=== PATIENT | female | born 1945 | race Caucasian/White ===

== ENCOUNTER 2023-04-13 20:35 | Observation (INO) ==
[2023-04-13] MEDS ORDERED: SODIUM CHLORIDE 0.9% 1,000 ML IV ONE (21:02)
--- NOTE | 2023-04-13 21:27 | Emergency Department Note ---
History of Present Illness General Chief complaint: Head Pain Stated complaint: SHAKY, HEAD PAIN Time Seen by Provider: 04/13/23 20:47 Source: patient, family, RN notes reviewed and old records reviewed (Head CT from 07/14/2022 was reviewed) Mode of arrival: ambulatory Limitations: no limitations History of Present Illness Maximum Pain Intensity: 5 This patient is a 77-year-old female who comes in after not feeling well for about 3 weeks. She is having episodes where she feels hot and has chills she feels like she has some head headaches when these occur she also gets short of breath and shaky she feels generally washed out she gets nauseated. She was seen in [place] and was in overnight and was diagnosed with hypokalemia at the time. She has had no fever. she has had no fall or trauma. No chest pain . she is not short of breath except for when she gets these episodes. she is been shaky she has a history of anxiety but feels this is different. She had no blood or melena stool no abdominal pain. No focal numbness or weakness. she does have baseline tremor. She may have had some mild dysuria Home Medications Medication Instructions Recorded Confirmed Type epinephrine 0.3 mg/0.3 mL 0.3 mg IM Q4H PRN Allergic Reaction 07/04/22 04/13/23 History injection, auto-injector (EpiPen) fluoxetine 10 mg capsule 10 mg PO DAILY 07/04/22 04/13/23 History hydroxyzine HCl 10 mg tablet 5 - 10 mg PO TID PRN anxiety or 04/13/23 04/13/23 History insomnia Allergies Allergy/AdvReac Type Severity Reaction Status Date / Time bee venom protein (honey bee) Allergy Severe Anaphylaxis Verified 04/13/23 20:54 shellfish derived Allergy Severe Anaphylaxis Verified 04/13/23 20:54 Sulfa (Sulfonamide Allergy Unknown Unknown Verified 04/13/23 20:54 Antibiotics) Past Med/Surg History Social History Smoking Status: Never smoker Preferred Language: Khmer Feels Safe at Home: Yes Immunizations: Past med historyanxiety. She also broke her left arm 8 months ago and scheduled of surgery next week. No diabetes or cardiac disease history. Denies history of stroke mini stroke or seizure. Social historyshe is followed by Dr. Mariscal. She does have a history of smoking but quit. Does not drink alcohol Review of Systems A total of 10 systems reviewed and were otherwise negative Physical Exam Vital Signs Vital Signs - 24 hr 04/13/23 20:38 04/13/23 21:13 04/13/23 21:15 Temperature 36.9 C Temperature Source Temporal Artery Scan Pulse Rate 74 Pulse Rate [Apical] 69 Pulse Rate from SpO2 Sensor Pulse Rhythm Regular Pulse Rhythm [Apical] Regular Pulse Strength Normal Respiratory Rate 19 21 Respiratory Effort / Characteristics Non-Labored Spontaneous Non-Labored Respiratory Depth Normal Normal Respiratory Pattern Regular Blood Pressure 200/74 H Blood Pressure [Right Arm] 185/80 H Blood Pressure Mean 116 Blood Pressure Mean [Right Arm] 115 Blood Pressure Position Sitting Pulse Oximetry 97 97 97 Oxygen Delivery Method Room Air Room Air Sepsis Recent Fever Within 48 Hours No Sepsis New/Unexplained Change in Mental Status N/A Sepsis Action Taken by Nursing No Action Required 04/13/23 21:19 04/13/23 22:00 04/13/23 22:29 Temperature Temperature Source Pulse Rate 73 62 61 Pulse Rate [Apical] Pulse Rate from SpO2 Sensor 62 61 Pulse Rhythm Pulse Rhythm [Apical] Pulse Strength Respiratory Rate 15 18 Respiratory Effort / Characteristics Respiratory Depth Respiratory Pattern Blood Pressure 174/74 H 152/66 H Blood Pressure [Right Arm] Blood Pressure Mean 107 94 Blood Pressure Mean [Right Arm] Blood Pressure Position Pulse Oximetry 98 98 Oxygen Delivery Method Sepsis Recent Fever Within 48 Hours Sepsis New/Unexplained Change in Mental Status Sepsis Action Taken by Nursing 04/13/23 22:30 04/13/23 23:38 04/13/23 23:39 Temperature Temperature Source Pulse Rate 62 88 74 Pulse Rate [Apical] Pulse Rate from SpO2 Sensor 61 Pulse Rhythm Pulse Rhythm [Apical] Pulse Strength Respiratory Rate 25 H Respiratory Effort / Characteristics Respiratory Depth Respiratory Pattern Blood Pressure 155/73 H Blood Pressure [Right Arm] Blood Pressure Mean 100 Blood Pressure Mean [Right Arm] Blood Pressure Position Pulse Oximetry 97 Oxygen Delivery Method Sepsis Recent Fever Within 48 Hours Sepsis New/Unexplained Change in Mental Status Sepsis Action Taken by Nursing 04/13/23 23:01 04/13/23 23:30 04/14/23 00:01 Temperature Temperature Source Pulse Rate 63 63 74 Pulse Rate [Apical] Pulse Rate from SpO2 Sensor 63 63 74 Pulse Rhythm Pulse Rhythm [Apical] Pulse Strength Respiratory Rate 18 16 23 Respiratory Effort / Characteristics Respiratory Depth Respiratory Pattern Blood Pressure 168/57 H 178/78 H 186/65 H Blood Pressure [Right Arm] Blood Pressure Mean 94 111 105 Blood Pressure Mean [Right Arm] Blood Pressure Position Pulse Oximetry 95 98 97 Oxygen Delivery Method Sepsis Recent Fever Within 48 Hours Sepsis New/Unexplained Change in Mental Status Sepsis Action Taken by Nursing General: Well developed well nourished anxious older female who otherwise in no acute distress, breathing comfortably on room air. Normal speech HEENT: Normal cephalic atraumatic. Pupils are equal round and reactive to light. Extraocular movements are intact. Sclera anicteric. oropharynx is pink with moist mucous membranes. No swelling of the mouth lips or tongue. Neck: Supple with a midline trachea. No meningeal signs or stiffness, no JVD or bruits. No Stridor. Chest: Clear to auscultation bilaterally. No wheezes or rhonchi. No increased work of breathing. Heart: Regular rate and rhythm without murmurs or gallops. Abdomen: Soft nontender, nondistended without rebound guarding or rigidity. Extremities: No cyanosis clubbing or edema. No calf tenderness or assymetry Spine/Back. Non tender to palpation. No CVA tenderness Skin: Good turgor without rashes. Neurologic exam: Cranial nerves two through 12 are intact. Motor and sensation are intact and symmetrical throughout. There is an intention tremor Course Administered Medications Discontinued Medications Sodium Chloride (Nss) 1,000 mls @ 999 mls/hr IV .[id number] ONE Stop: 04/13/23 22:02 Last Infusion: 04/13/23 22:18 Dose: 0 mls/hr Documented By: Admin: 04/13/23 21:11 Dose: 999 mls/hr Documented By: KIRSTEN Medical Decision Making Differential Diagnosis Sepsis, electrolyte or metabolic abnormality, arrhythmia, neurologic disease, cardiac disease, anxiety, anemia, UTI Medical Records Attestation: I reviewed the patient's medical records. Home Medications Current Medication List: was personally reviewed by me Laboratory Data Attestation: I reviewed the patient's lab results. 04/13/23 21:39 04/13/23 21:39 Lab Results 04/13/23 04/13/23 04/13/23 Range/Units 21:00 21:14 21:39 WBC 11.34 H (4.8-10.8) K/ul RBC 4.50 (4.20-5.40) M/uL Hgb 13.6 (12.0-16.0) g/dl POC Hgb (12.0-16.0) g/dl Hct 39.4 (37.0-47.0) % POC Hct (37-47) % MCV 87.6 (80.0-100.0) fL MCH 30.2 (25.0-34.0) pg MCHC 34.5 (32.0-36.0) g/dL RDW Std Deviation 41.7 (36.4-46.3) fL RDW Coeff of Diane 13.1 (11.5-14.5) % Plt Count 310 (130-400) K/uL MPV 9.5 (9.4-12.4) fL Immature Gran % (Auto) 0.4 % Neut % (Auto) 68.0 % Lymph % (Auto) 22.8 % Mcdowell % (Auto) 7.3 % Eos % (Auto) 1.1 % Baso % (Auto) 0.4 % Neut # (Auto) 7.71 H (1.40-6.50) K/uL Lymph # (Auto) 2.59 (1.20-3.40) K/uL Mcdowell # (Auto) 0.83 H (0.11-0.59) K/uL Eos # (Auto) 0.12 (0.00-0.50) K/uL Baso # (Auto) 0.05 (0.00-0.20) K/uL Immature Gran # (Auto) 0.04 (0.01-0.20) K/uL PT (9.0-12.0) Seconds INR (0.9-1.1) APTT (21.0-31.0) Seconds PTT Ratio POC Sodium (135-144) mmol/L Sodium (136-145) mmol/L POC Potassium (3.3-5.0) mmol/L Potassium (3.5-5.1) mmol/L POC Chloride (101-112) mmol/L Chloride (98-107) mmol/L Carbon Dioxide (21-32) mmol/L POC Total CO2 (24-31) mmol/L Anion Gap (3-11) POC Anion Gap (16-25) mmol/L POC BUN (7-18) mg/dl BUN (6-23) mg/dl Creatinine (0.6-1.2) mg/dl POC Creatinine (0.6-1.3) mg/dl Est Cr Clr Drug Dosing ml/min Est GFR ( Amer) ml/min Est GFR (Non-Af Amer) ml/min BUN/Creatinine Ratio (10-20) Glucose (70-99(Fasting)) mg/dl POC Glucose (70-99) mg/dl POC Glucose (other) (70-99) mg/dl Lactate (0.4-2.0) mmol/L Calcium (8.6-10.3) mg/dl POC Ioniz Calcium Ambar (1.12-1.32) mmol/l Magnesium (1.7-2.4) mg/dl Total Bilirubin (0.2-1.0) mg/dl Direct Bilirubin (0-0.2) mg/dl AST (13-39) U/L ALT (7-52) U/L Alkaline Phosphatase (34-104) U/L Troponin I High Sens (0-14) pg/ml Total Protein (6.0-8.3) gm/dl Albumin (3.4-5.0) gm/dl Procalcitonin (0-0.5) ng/ml Urine Color Yellow Urine Appearance Clear (Clear) Urine pH 8.0 H (4.5-7.5) Ur Specific Hunter 1.006 (1.000-1.030) Urine Protein Negative (Negative) Urine Glucose (UA) Negative (Negative) Urine Ketones Negative (Negative) Urine Blood Negative (Negative) Urine Nitrite Negative (Negative) Urine Bilirubin Negative (Negative) Urine Urobilinogen Negative (Negative) Ur Leukocyte Esterase Negative (Negative) Anaplasma Smear Babesia Smear Lyme Disease IgG Ab (Negative) Lyme Disease IgM Ab (Negative) SARS-CoV-2 (PCR) NEGATIVE (Negative) Influenza Type A (PCR) Negative (Neg) Influenza Type B (PCR) Negative (Neg) RSV (RT-PCR) Negative (Neg) 04/13/23 04/13/23 04/13/23 Range/Units 21:39 21:39 21:39 WBC (4.8-10.8) K/ul RBC (4.20-5.40) M/uL Hgb (12.0-16.0) g/dl POC Hgb (12.0-16.0) g/dl Hct (37.0-47.0) % POC Hct (37-47) % MCV (80.0-100.0) fL MCH (25.0-34.0) pg MCHC (32.0-36.0) g/dL RDW Std Deviation (36.4-46.3) fL RDW Coeff of Diane (11.5-14.5) % Plt Count (130-400) K/uL MPV (9.4-12.4) fL Immature Gran % (Auto) % Neut % (Auto) % Lymph % (Auto) % Mcdowell % (Auto) % Eos % (Auto) % Baso % (Auto) % Neut # (Auto) (1.40-6.50) K/uL Lymph # (Auto) (1.20-3.40) K/uL Mcdowell # (Auto) (0.11-0.59) K/uL Eos # (Auto) (0.00-0.50) K/uL Baso # (Auto) (0.00-0.20) K/uL Immature Gran # (Auto) (0.01-0.20) K/uL PT 11.0 (9.0-12.0) Seconds INR 1.0 (0.9-1.1) APTT 25.7 (21.0-31.0) Seconds PTT Ratio 0.9 POC Sodium (135-144) mmol/L Sodium 139 (136-145) mmol/L POC Potassium (3.3-5.0) mmol/L Potassium 3.6 (3.5-5.1) mmol/L POC Chloride (101-112) mmol/L Chloride 107 (98-107) mmol/L Carbon Dioxide 23 (21-32) mmol/L POC Total CO2 (24-31) mmol/L Anion Gap 9 (3-11) POC Anion Gap (16-25) mmol/L POC BUN (7-18) mg/dl BUN 9 (6-23) mg/dl Creatinine 0.68 (0.6-1.2) mg/dl POC Creatinine (0.6-1.3) mg/dl Est Cr Clr Drug Dosing 61.8 ml/min Est GFR ( Amer) 96.4 ml/min Est GFR (Non-Af Amer) 83.2 ml/min BUN/Creatinine Ratio 13.2 (10-20) Glucose 98 (70-99(Fasting)) mg/dl POC Glucose (70-99) mg/dl POC Glucose (other) (70-99) mg/dl Lactate 1.8 (0.4-2.0) mmol/L Calcium 8.9 (8.6-10.3) mg/dl POC Ioniz Calcium Ambar (1.12-1.32) mmol/l Magnesium 1.9 (1.7-2.4) mg/dl Total Bilirubin 0.5 (0.2-1.0) mg/dl Direct Bilirubin 0.1 (0-0.2) mg/dl AST 16 (13-39) U/L ALT 11 (7-52) U/L Alkaline Phosphatase 88 (34-104) U/L Troponin I High Sens 7.2 (0-14) pg/ml Total Protein 7.5 (6.0-8.3) gm/dl Albumin 4.0 (3.4-5.0) gm/dl Procalcitonin (0-0.5) ng/ml Urine Color Urine Appearance (Clear) Urine pH (4.5-7.5) Ur Specific Hunter (1.000-1.030) Urine Protein (Negative) Urine Glucose (UA) (Negative) Urine Ketones (Negative) Urine Blood (Negative) Urine Nitrite (Negative) Urine Bilirubin (Negative) Urine Urobilinogen (Negative) Ur Leukocyte Esterase (Negative) Anaplasma Smear Babesia Smear Lyme Disease IgG Ab (Negative) Lyme Disease IgM Ab (Negative) SARS-CoV-2 (PCR) (Negative) Influenza Type A (PCR) (Neg) Influenza Type B (PCR) (Neg) RSV (RT-PCR) (Neg) 04/13/23 04/13/23 04/13/23 Range/Units 21:39 21:39 22:20 WBC (4.8-10.8) K/ul RBC (4.20-5.40) M/uL Hgb (12.0-16.0) g/dl POC Hgb (12.0-16.0) g/dl Hct (37.0-47.0) % POC Hct (37-47) % MCV (80.0-100.0) fL MCH (25.0-34.0) pg MCHC (32.0-36.0) g/dL RDW Std Deviation (36.4-46.3) fL RDW Coeff of Diane (11.5-14.5) % Plt Count (130-400) K/uL MPV (9.4-12.4) fL Immature Gran % (Auto) % Neut % (Auto) % Lymph % (Auto) % Mcdowell % (Auto) % Eos % (Auto) % Baso % (Auto) % Neut # (Auto) (1.40-6.50) K/uL Lymph # (Auto) (1.20-3.40) K/uL Mcdowell # (Auto) (0.11-0.59) K/uL Eos # (Auto) (0.00-0.50) K/uL Baso # (Auto) (0.00-0.20) K/uL Immature Gran # (Auto) (0.01-0.20) K/uL PT (9.0-12.0) Seconds INR (0.9-1.1) APTT (21.0-31.0) Seconds PTT Ratio POC Sodium (135-144) mmol/L Sodium (136-145) mmol/L POC Potassium (3.3-5.0) mmol/L Potassium (3.5-5.1) mmol/L POC Chloride (101-112) mmol/L Chloride (98-107) mmol/L Carbon Dioxide (21-32) mmol/L POC Total CO2 (24-31) mmol/L Anion Gap (3-11) POC Anion Gap (16-25) mmol/L POC BUN (7-18) mg/dl BUN (6-23) mg/dl Creatinine (0.6-1.2) mg/dl POC Creatinine (0.6-1.3) mg/dl Est Cr Clr Drug Dosing ml/min Est GFR ( Amer) ml/min Est GFR (Non-Af Amer) ml/min BUN/Creatinine Ratio (10-20) Glucose (70-99(Fasting)) mg/dl POC Glucose 122 H (70-99) mg/dl POC Glucose (other) (70-99) mg/dl Lactate (0.4-2.0) mmol/L Calcium (8.6-10.3) mg/dl POC Ioniz Calcium Ambar (1.12-1.32) mmol/l Magnesium (1.7-2.4) mg/dl Total Bilirubin (0.2-1.0) mg/dl Direct Bilirubin (0-0.2) mg/dl AST (13-39) U/L ALT (7-52) U/L Alkaline Phosphatase (34-104) U/L Troponin I High Sens (0-14) pg/ml Total Protein (6.0-8.3) gm/dl Albumin (3.4-5.0) gm/dl Procalcitonin < 0.05 (0-0.5) ng/ml Urine Color Urine Appearance (Clear) Urine pH (4.5-7.5) Ur Specific Hunter (1.000-1.030) Urine Protein (Negative) Urine Glucose (UA) (Negative) Urine Ketones (Negative) Urine Blood (Negative) Urine Nitrite (Negative) Urine Bilirubin (Negative) Urine Urobilinogen (Negative) Ur Leukocyte Esterase (Negative) Anaplasma Smear See Comment Babesia Smear See Comment Lyme Disease IgG Ab Negative (Negative) Lyme Disease IgM Ab Negative (Negative) SARS-CoV-2 (PCR) (Negative) Influenza Type A (PCR) (Neg) Influenza Type B (PCR) (Neg) RSV (RT-PCR) (Neg) 04/13/23 Range/Units 22:23 WBC (4.8-10.8) K/ul RBC (4.20-5.40) M/uL Hgb (12.0-16.0) g/dl POC Hgb 13.3 (12.0-16.0) g/dl Hct (37.0-47.0) % POC Hct 39 (37-47) % MCV (80.0-100.0) fL MCH (25.0-34.0) pg MCHC (32.0-36.0) g/dL RDW Std Deviation (36.4-46.3) fL RDW Coeff of Diane (11.5-14.5) % Plt Count (130-400) K/uL MPV (9.4-12.4) fL Immature Gran % (Auto) % Neut % (Auto) % Lymph % (Auto) % Mcdowell % (Auto) % Eos % (Auto) % Baso % (Auto) % Neut # (Auto) (1.40-6.50) K/uL Lymph # (Auto) (1.20-3.40) K/uL Mcdowell # (Auto) (0.11-0.59) K/uL Eos # (Auto) (0.00-0.50) K/uL Baso # (Auto) (0.00-0.20) K/uL Immature Gran # (Auto) (0.01-0.20) K/uL PT (9.0-12.0) Seconds INR (0.9-1.1) APTT (21.0-31.0) Seconds PTT Ratio POC Sodium 136 (135-144) mmol/L Sodium (136-145) mmol/L POC Potassium 4.0 (3.3-5.0) mmol/L Potassium (3.5-5.1) mmol/L POC Chloride 96 L (101-112) mmol/L Chloride (98-107) mmol/L Carbon Dioxide (21-32) mmol/L POC Total CO2 31 (24-31) mmol/L Anion Gap (3-11) POC Anion Gap 14.0 L (16-25) mmol/L POC BUN 24 H (7-18) mg/dl BUN (6-23) mg/dl Creatinine (0.6-1.2) mg/dl POC Creatinine 1.3 (0.6-1.3) mg/dl Est Cr Clr Drug Dosing ml/min Est GFR ( Amer) ml/min Est GFR (Non-Af Amer) ml/min BUN/Creatinine Ratio (10-20) Glucose (70-99(Fasting)) mg/dl POC Glucose (70-99) mg/dl POC Glucose (other) 125 H (70-99) mg/dl Lactate (0.4-2.0) mmol/L Calcium (8.6-10.3) mg/dl POC Ioniz Calcium Ambar 1.15 (1.12-1.32) mmol/l Magnesium (1.7-2.4) mg/dl Total Bilirubin (0.2-1.0) mg/dl Direct Bilirubin (0-0.2) mg/dl AST (13-39) U/L ALT (7-52) U/L Alkaline Phosphatase (34-104) U/L Troponin I High Sens (0-14) pg/ml Total Protein (6.0-8.3) gm/dl Albumin (3.4-5.0) gm/dl Procalcitonin (0-0.5) ng/ml Urine Color Urine Appearance (Clear) Urine pH (4.5-7.5) Ur Specific Hunter (1.000-1.030) Urine Protein (Negative) Urine Glucose (UA) (Negative) Urine Ketones (Negative) Urine Blood (Negative) Urine Nitrite (Negative) Urine Bilirubin (Negative) Urine Urobilinogen (Negative) Ur Leukocyte Esterase (Negative) Anaplasma Smear Babesia Smear Lyme Disease IgG Ab (Negative) Lyme Disease IgM Ab (Negative) SARS-CoV-2 (PCR) (Negative) Influenza Type A (PCR) (Neg) Influenza Type B (PCR) (Neg) RSV (RT-PCR) (Neg) Imaging Data Attestation: I personally reviewed and interpreted this imaging study as follows: My Impression: Chest x-rayno acute infiltrate, failure, pneumothorax seen. 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 No midline shift. Radiologist's Impression: Head CT 04/13/23 21:01 Exam(s): CT HEAD Without Contrast EXAM: CT Head Without Intravenous Contrast CLINICAL HISTORY: Reason for exam: weakness. TECHNIQUE: Axial computed tomography images of the head/brain without intravenous contrast. CTDI is 38.1 mGy and DLP is 546.36 mGy-cm. Automated exposure control was utilized for the study. A dose lowering technique was utilized adhering to the principles of ALARA. COMPARISON: No relevant prior studies available. FINDINGS: No acute intracranial hemorrhage. No midline shift or mass effect. The territorial miles-white matter differentiation is maintained throughout. Age-related cerebral volume loss. Periventricular and subcortical white matter hypoattenuation, consistent with chronic microangiopathy. The visualized orbits appear grossly unremarkable. The calvarium is intact. The visualized paranasal sinuses and mastoid air cells are grossly clear. IMPRESSION: No acute intracranial hemorrhage, midline shift, or mass effect. Electronically signed by: Yunior Hoskins MD 04/13/23 23:18 PM ECG Data Attestation: I personally reviewed and interpreted this ECG as follows: Indication: + weakness Rate (beats per minute): 73 Rhythm: + normal sinus ECG Intervals/blocks: + Normal QRS, + Normal QT and + Normal [place] ECG [place]: + Normal ECG ST segments: + Nonspecific ST abnormalities ECG Findings: + PVCs (She appears to be in bigeminy) Comparison ECG Date: no prior available Additional Comments: EKG #2: Normal sinus rhythm with a rate of 84. QRS may be slightly wider than first 1 there is left axis deviation and left bundle branch block MDM Narrative This patient comes in as described above. She has not been feeling well for several weeks and has multiple complaints she has episodes where she feels like she is hot in her head but has no fever she feels short of breath and tired. She was hypertensive but otherwise had stable vital signs initially. IV access was established and blood work was obtained. she is worried that she could be septic. She may have some mild urinary symptoms, multiple blood testing was obtained, she was placed on a patient monitor. Her EKG shows frequent PVCs with bigeminy. She was hydrated with normal saline bolus and extensive sepsis/cardiac/neurologic work-up was obtained. She had a CAT scan of her head. Chest x-ray was unremarkable. CAT scan of her head was unremarkable. White count is minimally elevated 11 she has no significant acute anemia. She has no significant electrolyte or metabolic abnormalities. She is normal renal function. No abnormalities of her liver functions or lipase. The patient remained stable. I did order a second EKG. I went to check her monitor while she was here and the nurse told me that they thought she had a run of V. tach so I went in the room. Patient was stable she said she had another episode where she felt flush on the monitor she had a 10 beat run of an arrhythmia. The QRS is not very wide and she does have a little wide QRS at baseline so it may be more of an atrial arrhythmia rather than V. tach. At any rate she does need to come in for further treatment and evaluation I checked her she seems to be doing better again. I did consult Dr. Moya and he will be seen in ER for admission/observation. The patient is feeling better after having a 10 beat run of an arrhythmia, she does have frequent PVCs but is otherwise asymptomatic. Dr. Moya is seeing her at present. Continuous cardiac monitoring: Orders placed in EMR for continuous cardiac monitoring: Upon my evaluation patient had normal sinus rhythm rate of 80 with frequent PVCs Impression & Plan Arrhythmia, Weakness, Bigeminy, Tremor, Lab test negative for COVID-19 virus Discharge Plan Visit Data Chief Complaint: Head Pain Stated Complaint: SHAKY, HEAD PAIN ED Provider: Javier Puente Discharge Problem: Arrhythmia, Weakness, Bigeminy, Tremor, Lab test negative for COVID-19 virus Forms Stand Alone Forms: My [facility] Prescriptions Prescriptions: No Action fluoxetine 10 mg capsule 10 mg PO DAILY epinephrine [EpiPen] 0.3 mg/0.3 mL Auto-Injector 0.3 mg IM Q4H PRN (Reason: Allergic Reaction) hydroxyzine HCl 10 mg tablet 5 - 10 mg PO TID PRN (Reason: anxiety or insomnia) Referrals Referrals: PCP,NO [Physician] - Arrhythmia Qualifiers: Arrhythmia type: unspecified cardiac arrhythmia Qualified Code(s): I49.9 - Cardiac arrhythmia, unspecified
[2023-04-13 21:45] LABS: Appearance Urine Clear (Clear); Bilirubin Urine Negative (Negative); Blood Urine Negative (Negative); Color Urine Yellow; Glucose Urine UA Negative (Negative); Ketones Urine Negative (Negative); Leukocyte Esterase Urine Negative (Negative); Nitrite Urine Negative (Negative); Protein Urine Negative (Negative); Specific Gravity Urine 1.006 (1.000-1.030); Urobilinogen Urine Negative (Negative)
[2023-04-13 22:15] LABS: Basophils # (auto) 0.05 K/uL (0.00-0.20); Basophils % (auto) 0.4 %; Eosinophils # (auto) 0.12 K/uL (0.00-0.50); Eosinophils % (auto) 1.1 %; Hematocrit (blood only) 39.4 % (37.0-47.0); Hemoglobin 13.6 g/dl (12.0-16.0); Immature Granulocytes # (auto) 0.04 K/uL (0.01-0.20); Immature Granulocytes % (auto) 0.4 %; Lymphocytes # (auto) 2.59 K/uL (1.20-3.40); Lymphocytes % (auto) 22.8 %; Mean Corpuscular Hemoglobin 30.2 pg (25.0-34.0); Mean Corpuscular Hgb Conc 34.5 g/dL (32.0-36.0); Mean Corpuscular Volume 87.6 fL (80.0-100.0); Mean Platelet Volume 9.5 fL (9.4-12.4); Monocytes # (auto) 0.83 K/uL (0.11-0.59); Monocytes % (auto) 7.3 %; Neutrophils # (auto) 7.71 K/uL (1.40-6.50); Platelet Count 310 K/uL (130-400); RDW Coefficient of Variation 13.1 % (11.5-14.5); RDW Standard Deviation 41.7 fL (36.4-46.3); White Blood Count 11.34 K/ul (4.8-10.8)
[2023-04-13 22:28] LABS: Influenza A virus by PCR Negative (Neg); Influenza B virus by PCR Negative (Neg); RSV by PCR Negative (Neg); SARS CoV2 RNA(COVID-19) Ceph NEGATIVE (Negative)
[2023-04-13 22:31] LABS: BUN Creatinine Ratio 13.2 (10-20); Bilirubin Direct 0.1 mg/dl (0-0.2); Bilirubin,Total 0.5 mg/dl (0.2-1.0); Calcium 8.9 mg/dl (8.6-10.3); Creatinine Clr Calc Pharmacy 61.8 ml/min; Est GFR (African American) 96.4 ml/min; Est GFR (Non-African American) 83.2 ml/min; Magnesium 1.9 mg/dl (1.7-2.4); Potassium 3.6 mmol/L (3.5-5.1); Total Protein 7.5 gm/dl (6.0-8.3)
[2023-04-13 22:37] LABS: Troponin I High Sensitivity 7.2 pg/ml (0-14)
[2023-04-13 22:39] LABS: Partial Thromboplastin Ratio 0.9; Partial Thromboplastin Time 25.7 Seconds (21.0-31.0)
[2023-04-13 22:41] LABS: Procalcitonin < 0.05 ng/ml (0-0.5)
[2023-04-13 22:48] LABS: Lyme Ab IgG w/WB Rflx Negative (Negative); Lyme Ab IgM w/WB Rflx Negative (Negative)
--- NOTE | 2023-04-13 23:19 | CT Scan Report ---
Exam(s): CT HEAD Without Contrast EXAM: CT Head Without Intravenous Contrast CLINICAL HISTORY: Reason for exam: weakness. TECHNIQUE: Axial computed tomography images of the head/brain without intravenous contrast. CTDI is 38.1 mGy and DLP is 546.36 mGy-cm. Automated exposure control was utilized for the study. A dose lowering technique was utilized adhering to the principles of ALARA. COMPARISON: No relevant prior studies available. FINDINGS: No acute intracranial hemorrhage. No midline shift or mass effect. The territorial miles-white matter differentiation is maintained throughout. Age-related cerebral volume loss. Periventricular and subcortical white matter hypoattenuation, consistent with chronic microangiopathy. The visualized orbits appear grossly unremarkable. The calvarium is intact. The visualized paranasal sinuses and mastoid air cells are grossly clear. IMPRESSION: No acute intracranial hemorrhage, midline shift, or mass effect. Electronically signed by: Yunior Hoskins MD 04/13/23 23:18 PM
[2023-04-13] MEDS ORDERED: POTASSIUM CHLORIDE CRTAB 20 MEQ TABCR PO STA (23:59)
[2023-04-14] MEDS ORDERED: MAGNESIUM SULFATE / D5W 1 GM/100 ML BAG IV STA (00:01)
[2023-04-14] MEDS ORDERED: METOPROLOL TARTRATE 25 MG TAB PO STA (00:15)
[2023-04-14] MEDS ORDERED: hydrOXYzine HCl 10 MG TAB PO PRN (00:15)
[2023-04-14 00:37] LABS: Thyroid Stimulating Hormone 7.028 uIu/ml (0.300-4.500)
[2023-04-14 00:45] LABS: D Dimer 690 ug/L FEU (0-500)
[2023-04-14 01:12] LABS: T4 Free Thyroxine 1.02 ng/dl (0.61-1.60)
[2023-04-14] MEDS ORDERED: hydrOXYzine HCl 10 MG TAB PO STA ×2 (01:49→04:38)
--- NOTE | 2023-04-14 01:50 | History & Physical Report ---
Date of Service April 14, 2023 Assessment & Plan (1) Hypertensive crisis: Plan: Possible chronic BP elevation given borderline cardiomegaly on CXR and LVH on EKG Symptomatic PVCs History LBBB Shortness of breath possibly from anxiety Rule out PE given abnormal D-dimer hyperlipidemia, not on statin Rx hx RLS/essential tremors as per records, worsening as per patient daughter the last week chronic left humeral fracture, surgery contemplated next week at [facility] Hyperglycemia rule out DM past tobacco abuse PCU Initiate beta-preston for BP and symptomatic PVCs TTE Re: Symptomatic PVCs VQ scan, LE Dopplers for PE work-up (CT precluded by IV contrast allergy) IV heparin until PE ruled out Titrate Vistaril as needed Psych consult if without improvement Check hemoglobin A1c DVT prophylaxis. IV heparin Full code Patient daughter requesting updates providers. Julieta Mock, contact #[phone]. Text document was generated using Hello Chair voice recognition software. It may contain grammatical or spelling errors. Kindly contact undersigned for clarification of any documentation item in question. ADDENDUM : 4 AM Made aware by RN of bradycardic episodes on the floor. Lowest heart rate of 40s. Patient anxious as per RN. Hold Lopressor given bradycardia for now. Utilize lisinopril for BP control while Lopressor on hold. Cardiology consult re: episodic bradycardia, history symptomatic PVCs History of Present Illness Chief Complaint: Not feeling well, worsening headache, shakiness, shortness of breath, anxiety Primary Care Provider: DONA Jurado History obtained from patient, family, and records. Medical history significant for LBBB, hyperlipidemia, RLS/essential tremors as per records, anxiety/mood disorder, chronic left humeral fracture, past tobacco abuse. One month history of intermittent posterior headache symptoms, shortness of breath, shakiness, fatigue, nausea symptoms. No chest pain, no cough symptoms. Possible spider bite right upper extremity last month. Admits to increased anxiety/stress over upcoming left humerus surgery at [facility] next week, grandson leaving for service, etc. Admits to depression without suicidality. Patient started by PCP on Vistaril as needed for anxiety. Not sure if working. Overnight confinement at [facility] last month. Symptoms attributed to anxiety and hypokalemia. PVCs noted on the monitor as per daughter who is also an RN. Patient discharged on buspirone which patient stopped after a few doses because it made her sicker. Patient brought to ER by family for worsening symptoms. Initial SBP 200s. NSVT and multiple PVCs noted on ER telemetry. Medical History as above Surgical History : Laser trabeculoplasty, CASSIE, RSO, cataract surgery Family History : Brain cancer, colon cancer Personal/Social history : Past tobacco abuse, no EtOH intake, retired camp assistant Allergies Allergy/AdvReac Type Severity Reaction Status Date / Time bee venom protein (honey bee) Allergy Severe Anaphylaxis Verified 04/13/23 20:54 shellfish derived Allergy Severe Anaphylaxis Verified 04/13/23 20:54 Sulfa (Sulfonamide Allergy Unknown Unknown Verified 04/13/23 20:54 Antibiotics) buspirone AdvReac Mild Nausea Verified 04/14/23 02:16 Home Medications Medication Instructions Recorded Confirmed Type epinephrine 0.3 mg/0.3 mL 0.3 mg IM Q4H PRN Allergic Reaction 07/04/22 04/13/23 History injection, auto-injector (EpiPen) fluoxetine 10 mg capsule 10 mg PO DAILY 07/04/22 04/13/23 History hydroxyzine HCl 10 mg tablet 5 - 10 mg PO TID PRN anxiety or 04/13/23 04/13/23 History insomnia Past Med/Surg History Social History Smoking Status: Former smoker Second Hand Exposure: No; Do You Dip or Chew Tobacco: No; Tobacco Cessation Education Requested by Patient: No Hx Alcohol Use: No Hx Substance Use: No Preferred Language: Georgian Communication Ability: Effective Yard Clerk Required: No Beliefs That Will Affect Care: None Current Living Situation: Alone Other Information That Helps Us Care for You: No Feels Safe at Home: Yes Safety Concerns: Feels Safe At This Time Assistive Devices: None Review of Systems Review of Systems: As per HPI, all other systems reviewed and negative Physical Exam Physical Exam: GENERAL: Slightly uncomfortable, markedly anxious, tremulous, no respiratory distress SKIN: Normal color, warm HEENT: [place] palpebral conjunctivae, no ptosis, dry buccal mucosa NECK : Supple, no tenderness CHEST : CTA, no tenderness HEART : RRR, no obvious murmurs ABDOMEN: Some distention, nontender EXTREMITIES : No LE swelling/tenderness, minimal left upper extremity tenderness, no other conspicuous deformities noted NEUROLOGIC : Coherent, no facial asymmetry, rest tremors, gait and stance not assessed Results & Data Results & Data Vital Signs (Past 12 Hours) Vital Signs Temp Pulse Pulse Resp BP BP Pulse Ox 04/14/23 01:19 71 04/14/23 00:01 74 23 186/65 H 97 04/13/23 23:30 63 16 178/78 H 98 04/13/23 23:01 63 18 168/57 H 95 04/13/23 23:39 74 04/13/23 23:38 88 04/13/23 22:30 62 25 H 155/73 H 97 04/13/23 22:29 61 18 152/66 H 98 04/13/23 22:00 62 15 174/74 H 98 04/13/23 21:19 73 04/13/23 21:15 97 04/13/23 21:13 69 21 185/80 H 97 04/13/23 20:38 36.9 C 74 19 200/74 H 97 O2 Del Method 04/14/23 01:19 04/14/23 00:01 04/13/23 23:30 04/13/23 23:01 04/13/23 23:39 04/13/23 23:38 04/13/23 22:30 04/13/23 22:29 04/13/23 22:00 04/13/23 21:19 04/13/23 21:15 Room Air 04/13/23 21:13 04/13/23 20:38 Room Air Laboratory Results Laboratory Results WBC 11.34 K/ul (4.8-10.8) H 04/13/23 21:39 RBC 4.50 M/uL (4.20-5.40) 04/13/23 21:39 Hgb 13.6 g/dl (12.0-16.0) 04/13/23 21:39 POC Hgb 13.3 g/dl (12.0-16.0) 04/13/23 22:23 Hct 39.4 % (37.0-47.0) 04/13/23 21:39 POC Hct 39 % (37-47) 04/13/23 22:23 MCV 87.6 fL (80.0-100.0) 04/13/23 21:39 MCH 30.2 pg (25.0-34.0) 04/13/23 21: MCHC 34.5 g/dL (32.0-36.0) 04/13/23: RDW Std Deviation 41.7 fL (36.4-46.3) 04/13/23 21: RDW Coeff of Diane 13.1 % (11.5-14.5) 04/13/23: Plt Count 310 K/uL (130-400) 04/13/23 21: MPV 9.5 fL (9.4-12.4) 04/13/23 21: Immature Gran % (Auto) 0.4 % 04/13/23 21: Neut % (Auto) 68.0 % 04/13/23: Lymph % (Auto) 22.8 % 04/13/23 21: [place] % (Auto) 7.3 % 04/13/23: Eos % (Auto) 1.1 % 04/13/23: Baso % (Auto) 0.4 % 04/13/23: Neut # (Auto) 7.71 K/uL (1.40-6.50) H 04/13/23 21:39 Lymph # (Auto) 2.59 K/uL (1.20-3.40) 04/13/23 21:39 [place] # (Auto) 0.83 K/uL (0.11-0.59) H 04/13/23 21:39 Eos # (Auto) 0.12 K/uL (0.00-0.50) 04/13/23: Baso # (Auto) 0.05 K/uL (0.00-0.20) 04/13/23: Immature Gran # (Auto) 0.04 K/uL (0.01-0.20) 04/13/23: PT 11.0 Seconds (9.0-12.0) 04/13/23: INR 1.0 (0.9-1.1) 04/13/23 21: APTT 25.7 Seconds (21.0-31.0) 04/13/23: PTT Ratio 0.9 04/13/23: D-Dimer 690 ug/L FEU (0-500) H* 04/13/23 21:39 POC Sodium 136 mmol/L (135-144) 04/13/23 22:23 Sodium 139 mmol/L (136-145) 04/13/23 21:39 POC Potassium 4.0 mmol/L (3.3-5.0) 04/13/23 22:23 Potassium 3.6 mmol/L (3.5-5.1) 04/13/23 21:39 POC Chloride 96 mmol/L (101-112) L 04/13/23 22:23 Chloride 107 mmol/L (98-107) 04/13/23 21:39 Carbon Dioxide 23 mmol/L (21-32) 04/13/23 21:39 POC Total CO2 31 mmol/L (24-31) 04/13/23 22:23 Anion Gap 9 (3-11) 04/13/23 21:39 POC Anion Gap 14.0 mmol/L (16-25) L 04/13/23 22:23 POC BUN 24 mg/dl (7-18) H 04/13/23 22:23 BUN 9 mg/dl (6-23) 04/13/23 21:39 Creatinine 0.68 mg/dl (0.6-1.2) 04/13/23 21:39 POC Creatinine 1.3 mg/dl (0.6-1.3) 04/13/23 22:23 Est Cr Clr Drug Dosing 61.8 ml/min 04/13/23 21:39 Est GFR ( Amer) 96.4 ml/min 04/13/23 21:39 Est GFR (Non-Af Amer) 83.2 ml/min 04/13/23 21:39 BUN/Creatinine Ratio 13.2 (10-20) 04/13/23 21:39 Glucose 98 mg/dl (70-99(Fasting)) 04/13/23 21:39 POC Glucose 122 mg/dl (70-99) H 04/13/23 22:20 POC Glucose (other) 125 mg/dl (70-99) H 04/13/23 22:23 Lactate 1.8 mmol/L (0.4-2.0) 04/13/23 21:39 Calcium 8.9 mg/dl (8.6-10.3) 04/13/23 21:39 POC Ioniz Calcium Ambar 1.15 mmol/l (1.12-1.32) 04/13/23 22:23 Magnesium 1.9 mg/dl (1.7-2.4) 04/13/23 21:39 Total Bilirubin 0.5 mg/dl (0.2-1.0) 04/13/23 21:39 Direct Bilirubin 0.1 mg/dl (0-0.2) 04/13/23 21:39 AST 16 U/L (13-39) 04/13/23 21:39 ALT 11 U/L (7-52) 04/13/23 21:39 Alkaline Phosphatase 88 U/L (34-104) 04/13/23 21:39 Troponin I High Sens 7.2 pg/ml (0-14) 04/13/23 21: Total Protein 7.5 gm/dl (6.0-8.3) 04/13/23 21:39 Albumin 4.0 gm/dl (3.4-5.0) 04/13/23 21:39 Procalcitonin < 0.05 ng/ml (0-0.5) 04/13/23 21:39 TSH 7.028 uIu/ml (0.300-4.500) H 04/13/23 21:39 Free T4 1.02 ng/dl (0.61-1.60) 04/13/23 21:39 Urine Color Yellow 04/13/23 21:00 Urine Appearance Clear (Clear) 04/13/23 21:00 Urine pH 8.0 (4.5-7.5) H 04/13/23 21:00 Ur Specific [place] 1.006 (1.000-1.030) 04/13/23 21:00 Urine Protein Negative (Negative) 04/13/23 21:00 Urine Glucose (UA) Negative (Negative) 04/13/23 21:00 Urine Ketones Negative (Negative) 04/13/23 21:00 Urine Blood Negative (Negative) 04/13/23 21:00 Urine Nitrite Negative (Negative) 04/13/23 21:00 Urine Bilirubin Negative (Negative) 04/13/23 21:00 Urine Urobilinogen Negative (Negative) 04/13/23 21:00 Ur Leukocyte Esterase Negative (Negative) 04/13/23 21:00 Anaplasma Smear See Comment 04/13/23 21:39 Babesia Smear See Comment 04/13/23 21:39 Lyme Disease IgG Ab Negative (Negative) 04/13/23 21:39 Lyme Disease IgM Ab Negative (Negative) 04/13/23 21:39 SARS-CoV-2 (PCR) NEGATIVE (Negative) 04/13/23 21:14 Influenza Type A (PCR) Negative (Neg) 04/13/23 21:14 Influenza Type B (PCR) Negative (Neg) 04/13/23 21:14 RSV (RT-PCR) Negative (Neg) 04/13/23 21:[address] 04/13/23 21:01 Exam(s): CT HEAD Without Contrast EXAM: CT Head Without Intravenous Contrast CLINICAL HISTORY: Reason for exam: weakness. TECHNIQUE: Axial computed tomography images of the head/brain without intravenous contrast. CTDI is 38.1 mGy and DLP is 546.36 mGy-cm. Automated exposure control was utilized for the study. A dose lowering technique was utilized adhering to the principles of ALARA. COMPARISON: No relevant prior studies available. FINDINGS: No acute intracranial hemorrhage. No midline shift or mass effect. The [place]-white matter differentiation is maintained throughout. Age-related cerebral volume loss. Periventricular and subcortical white matter hypoattenuation, consistent with chronic microangiopathy. The visualized orbits appear grossly unremarkable. The calvarium is intact. The visualized paranasal sinuses and mastoid air cells are grossly clear. IMPRESSION: No acute intracranial hemorrhage, midline shift, or mass effect. Electronically signed by: Yunior Hoskins MD 04/13/23 23:18 PM Diagnostic Findings Chest x-ray as per my interpretation: Atelectasis, borderline cardiomegaly EKG as per my interpretation : Rate 75, NSR, LAD, LAFB, LVH, inferior infarct, anteroseptal infarct, PVCs
[2023-04-14] MEDS ORDERED: PROMETHAZINE HCL 6.25 MG in SODIUM CHLORIDE 0.9% 50 ML IV PRN (01:53)
[2023-04-14] MEDS ORDERED: Heparin IV Adult Wt-Based Low-Dose *NO* Bolus Protocol IV STA (02:02)
[2023-04-14] MEDS ORDERED: NSS + 20MEQ KCL 20 MEQ/1,000 ML BAG IV STA (02:11)
[2023-04-14] MEDS ORDERED: HEPARIN SODIUM/DEXTROSE 25,000 UNITS/500 ML BAG IV SCH (02:15)
[2023-04-14] MEDS ORDERED: hydrOXYzine HCl 25 MG TAB PO PRN (04:40)
[2023-04-14] MEDS ORDERED: MELATONIN 3 MG TAB PO PRN (04:40)
--- NOTE | 2023-04-14 06:00 | Ultrasound Report ---
Exam(s): US VENOUS BILATERAL LOWER EXTREMITIES EXAM: US Duplex Bilateral Lower Extremities Veins CLINICAL HISTORY: Reason for exam: abn dimer. TECHNIQUE: Real-time duplex ultrasound scan of the bilateral lower extremity veins integrating B-mode two-dimensional vascular structure, Doppler spectral analysis, color flow Doppler imaging and compression. COMPARISON: No relevant prior studies available. FINDINGS: Right deep veins: Unremarkable. No DVT in the right common femoral, femoral, proximal deep femoral or popliteal veins. The veins demonstrate normal color flow, are normally compressible, with normal phasic flow and/or augmentation response. Right superficial veins: Unremarkable. No thrombus in the visualized right great saphenous vein. Left deep veins: Unremarkable. No DVT in the left common femoral, femoral, proximal deep femoral or popliteal veins. The veins demonstrate normal color flow, are normally compressible, with normal phasic flow and/or augmentation response. Left superficial veins: Unremarkable. No thrombus in the visualized left great saphenous vein. Soft tissues: No acute findings. No popliteal cyst. IMPRESSION: Normal bilateral lower extremity duplex venous ultrasound. Electronically signed by: Manuel Lucas MD 04/14/23 05:59 AM
[2023-04-14] MEDS ORDERED: lisinopril 2.5 MG TAB PO SCH (06:30)
--- NOTE | 2023-04-14 07:52 | XRay Report ---
XR chest 1V portable CLINICAL HISTORY: Sepsis TECHNIQUE: Single frontal radiograph of the chest was obtained. Comparison: None available at the time of this dictation. FINDINGS: No lines and tubes are seen. Calcified aortic knob is seen. The lungs are clear. No evidence of pleur al effusion or pneumothorax. IMPRESSION: No acute abnormalities and in particular no radiographic evidence of pneumonia. ACT 112: Negative or not required by law. Electronically signed by: Low Baez M.D. 04/14/2023 7:51 AM
--- NOTE | 2023-04-14 07:54 | Electrocardiogram Report ---
Test Reason : Blood Pressure : / mmHG Vent. Rate : 058 BPM Atrial Rate : 058 BPM P-R Int : 154 ms QRS Dur : 086 ms QT Int : 472 ms P-R-T Axes : 082 022 030 degrees QTc Int : 463 ms Sinus bradycardia with Premature atrial complexes with Aberrant conduction T wave abnormality, consider anterior ischemia Abnormal ECG When compared with ECG of 13-APR-2023 21:10, (unconfirmed) Premature ventricular complexes are no longer Present Aberrant conduction is now Present Vent. rate has decreased BY 28 BPM Left bundle branch block no longer present Confirmed by Austin Mark ([id number]) on 04/14/2023 7:53:33 AM Referred By: REFERRED SELF Confirmed By:Austin Mark
[2023-04-14 08:09] LABS: Estimated Average Glucose 120 mg/dl; Hemoglobin A1C 5.8 % (4.5-5.6)
[2023-04-14] MEDS: FLUoxetine HCL 10 MG CAP PO SCH (09:05)
[2023-04-14 10:01] LABS: Basophils # (auto) 0.03 K/uL (0.00-0.20); Basophils % (auto) 0.4 %; Eosinophils # (auto) 0.08 K/uL (0.00-0.50); Hematocrit (blood only) 35.5 % (37.0-47.0); Hemoglobin 12.3 g/dl (12.0-16.0); Immature Granulocytes # (auto) 0.01 K/uL (0.01-0.20); Immature Granulocytes % (auto) 0.1 %; Lymphocytes # (auto) 2.42 K/uL (1.20-3.40); Lymphocytes % (auto) 30.9 %; Mean Corpuscular Hgb Conc 34.6 g/dL (32.0-36.0); Mean Corpuscular Volume 86.6 fL (80.0-100.0); Mean Platelet Volume 9.5 fL (9.4-12.4); Monocytes # (auto) 0.49 K/uL (0.11-0.59); Monocytes % (auto) 6.3 %; Neutrophils # (auto) 4.79 K/uL (1.40-6.50); Neutrophils % (auto) 61.3 %; Platelet Count 284 K/uL (130-400); RDW Coefficient of Variation 13.2 % (11.5-14.5); RDW Standard Deviation 41.6 fL (36.4-46.3); White Blood Count 7.82 K/ul (4.8-10.8)
[2023-04-14 10:16] LABS: BUN Creatinine Ratio 15.9 (10-20); Calcium 8.5 mg/dl (8.6-10.3); Creatinine Clr Calc Pharmacy 66.1 ml/min; Est GFR (African American) 98.9 ml/min; Est GFR (Non-African American) 85.3 ml/min; Potassium 4.5 mmol/L (3.5-5.1)
[2023-04-14 10:33] LABS: Partial Thromboplastin Ratio 1.2; Partial Thromboplastin Time 34.5 Seconds (21.0-31.0)
[2023-04-14] MEDS ORDERED: HEPARIN SOD (PORCINE) 1000 UNIT/ML IV ONE (11:15)
--- NOTE | 2023-04-14 13:15 | Hospitalist Progress Note ---
Date of Service April 14, 2023 Assessment & Plan (1) Hypertensive crisis: Plan: UNCONTROLLED HYPERTENSION Not on antihypertensives at home Echocardiogram: Moderate concentric LVH EF 55 to 60% Grade 1 diastolic dysfunction No significant valvular stenosis Lisinopril 2.5 mg p.o. daily started Blood pressure improving Cardiology service consulted SYMPTOMATIC PVCS HISTORY LBBB Bradycardia noted overnight, heart rate 40 Cardiology service consulted SHORTNESS OF BREATH POSSIBLY FROM ANXIETY D dimer 600s VQ scan pending Doppler ultrasound: Negative DC heparin if VQ scan is negative hyperlipidemia, not on statin Rx hx RLS/essential tremors as per records, worsening as per patient daughter the last week chronic left humeral fracture, surgery contemplated next week at [facility] past tobacco abuse DVT prophylaxis. IV heparin Full code Disposition Anticipate discharge to home when medically stable Admission and Anticipated Discharge Date Admission Date: April 14, 2023 Subjective Follow-up for hypertension, etc. Seen resting in bed, sitting up, comfortable States she feels improved compared to yesterday Denies shortness of breath, chest pain, palpitations, dizziness States she has some mild anxiety in light of upcoming shoulder surgery, grandson training the , etc. but mood is stable, does not feel she needs medication changes Review of Systems Review of Systems: all noted and negative except for above Physical Exam Physical Exam: General- oriented x 3, not in distress, speaks in sentences with no effort or accessory muscle use Eyes- anicteric Neck- no JVD Lungs- clear breath sounds bilaterally, no rales/wheezes Heart- normal rate, regular rhythm; no murmurs Abdomen- normal bowel sounds, nondistended, soft, nontender Extremities- no pretibial edema, no calf tenderness Neuro- alert, oriented x 3; no gross focal neurologic deficits Skin- warm & dry Results & Data Results & Data Vital Signs (Past 12 Hours) Vital Signs Temp Pulse Pulse Resp BP BP Pulse Ox 04/14/23 11:06 36.7 C 54 L 18 138/75 98 04/14/23 08:00 04/14/23 07:48 36.8 C 59 L 19 153/62 H 96 04/14/23 07:00 68 04/14/23 03:30 58 L 04/14/23 02:50 36.3 C L 71 20 168/113 H 97 04/14/23 02:01 164/53 H 04/14/23 02:01 53 L 14 97 04/14/23 02:00 60 17 93 04/14/23 01:31 155/77 H 04/14/23 01:31 66 16 94 04/14/23 01:30 68 25 H 90 04/14/23 01:19 71 O2 Del Method 04/14/23 11:06 Room Air 04/14/23 08:00 Room Air 04/14/23 07:48 Room Air 04/14/23 07:00 04/14/23 03:30 04/14/23 02:50 Room Air 04/14/23 02:01 04/14/23 02:01 04/14/23 02:00 04/14/23 01:31 04/14/23 01:31 04/14/23 01:30 04/14/23 01:19 all noted and reviewed including below
--- NOTE | 2023-04-14 13:27 | Cardiology Consultation ---
Date of Consultation April 14, 2023 Assessment & Plan (1) Hypertensive crisis: (2) Left bundle branch block: (3) Premature ventricular contractions (PVCs) (VPCs): (4) Tremor: Plan Patient is a 77-year-old female with limited records available who presents with symptoms of malaise and fatigue and palpitations over the past several weeks. Records review reveals evidence of hypertension, intermittent left bundle branch block and past hypokalemia. Patient underlying issues include essential tremor Recent [facility] visit for similar complaints and treated for hypokalemia and anxiety Patient does admit to some stress contributing to complaints "Does not like to take medications" On presentation the patient significantly hypertensive though improved this morning EKGs and telemetry reflect frequent ventricular ectopy bigeminy and trigeminy. Bradycardia noted overnight reflects artifactual findings due to ventricular ectopy actual bradycardia not present other than high 50s low 60s beats per minute Recommendations 1. Hypertensive crisis: Blood pressures are now improved with low-dose lisinopril 2.5 mg metoprolol tartrate 12.5 g last evening single dose Would continue lisinopril 2.5 mg/day 2. Bradycardia: Profound bradycardia not present reported bradycardia artifactual secondary to ventricular ectopy 3. Frequent ventricular ectopy: Would continue low-dose beta-preston with metoprolol succinate 12.5 mg daily. 4. Intermittent left bundle branch block possibly rate related: Left bundle branch block present on EKG in June 2022. Given current presentation would recommend Lexiscan stress nuclear imaging post discharge as part of assess 5. Essential tremor progressively worsening per patient. Noted beta-preston would be of assistance of this as well. Would proceed as listed above 6. Elevated D-dimer: Work-up in progress. Patient begun on IV heparin last evening History of Present Illness Reason for Consultation: Ventricular ectopy, hypertensive urgency Requesting Physician: Dr. Pacheco Attending Physician: Zana Pacheco MD History of Present Illness Patient is a 77-year-old female, fair historian. Information gained from review of records and chart. Limited records available Underlying medical issues per patient and records include 1. Hypertension 2. Intermittent left bundle branch block 3. Chronic ventricular ectopy, bigeminy trigeminy 4. Essential tremor Patient presented this admission noting having not felt well for several weeks. Notes recent evaluation at [facility] with diagnosis of hypokalemia, ventricular ectopy, anxiety. Hypokalemia repleted and patient begun on Vistaril No prior history of cardiac disease per patient notes no history of angina or congestive heart failure. Denies history rheumatic fever scarlet fever heart murmur No current fevers but feels "chilled all the time". No bleeding difficulties. No history of syncope or near syncope. Did suffer a mechanical fall June 2022 with left humeral fracture. Possible upcoming surgery On presentation last evening patient markedly hypertensive with EKGs and telemetry demonstrating intermittent left bundle branch block with frequent ventricular ectopy Blood pressure treated with low-dose JOSE G inhibitor and beta-preston. Telemetry reviewed overnight concerns raised regarding bradycardia with artifactual bradycardia present secondary to ventricular ectopy. No pauses or profound bradycardia arrhythmia Echocardiogram this morning: Moderate left hypertrophy with normal left or systolic function and grade 1 diastolic dysfunction Allergies Allergy/AdvReac Type Severity Reaction Status Date / Time bee venom protein (honey bee) Allergy Severe Anaphylaxis Verified 04/13/23 20:54 shellfish derived Allergy Severe Anaphylaxis Verified 04/13/23 20:54 Sulfa (Sulfonamide Allergy Unknown Unknown Verified 04/13/23 20:54 Antibiotics) buspirone AdvReac Mild Nausea Verified 04/14/23 02:16 Home Medications Medication Instructions Recorded Confirmed Type epinephrine 0.3 mg/0.3 mL 0.3 mg IM Q4H PRN Allergic Reaction 07/04/22 04/13/23 History injection, auto-injector (EpiPen) fluoxetine 10 mg capsule 10 mg PO DAILY 07/04/22 04/13/23 History hydroxyzine HCl 10 mg tablet 5 - 10 mg PO TID PRN anxiety or 04/13/23 04/13/23 History insomnia Patient History Social History Smoking Status: Former smoker Second Hand Exposure: No; Do You Dip or Chew Tobacco: No; Tobacco Cessation Education Requested by Patient: No Hx Alcohol Use: No Hx Substance Use: No Preferred Language: Yakut Communication Ability: Effective Business Leader Required: No Beliefs That Will Affect Care: None Current Living Situation: Alone Other Information That Helps Us Care for You: No Feels Safe at Home: Yes Safety Concerns: Feels Safe At This Time Assistive Devices: None Review of Systems Review of Systems: All systems reviewed & are unremarkable except as noted in HPI & below Physical Exam Constitutional: WD/WN, vitals as above no acute distress Eyes: PERRL, conjunctivae normal, anicteric sclerae ENMT: external ear and nose normal, oropharynx normal Neck: trachea midline, no thyromegaly Respiratory: normal respiratory effort, lungs clear to auscultation Cardiovascular: Rate/Rhythm: regular rate and regular rhythm Heart Sounds: normal S1 and normal S2; no murmur Vessels: normal carotid upstroke, femoral pulses present and radial pulses present; no JVD Extremities: no edema Gastrointestinal (Abdomen): normal bowel sounds, soft, nontender, no hepatosplenomegaly Musculoskeletal: no cyanosis or clubbing, extremities motor strength 5/5 Neurologic: Motor/Sensory: + tremor Results & Data Vital Signs (Past 12 Hours) Vital Signs Temp Pulse Pulse Resp BP BP Pulse Ox 04/14/23 08:00 04/14/23 07:48 36.8 C 59 L 19 153/62 H 96 04/14/23 07:00 68 04/14/23 03:30 58 L 04/14/23 02:50 36.3 C L 71 20 168/113 H 97 04/14/23 02:01 164/53 H 04/14/23 02:01 53 L 14 97 04/14/23 02:00 60 17 93 04/14/23 01:31 155/77 H 04/14/23 01:31 66 16 94 04/14/23 01:30 68 25 H 90 04/14/23 01:01 173/81 H 04/14/23 01:01 72 25 H 97 04/14/23 01:19 71 04/14/23 00:01 74 23 186/65 H 97 04/13/23 23:39 74 04/13/23 23:38 88 O2 Del Method 04/14/23 08:00 Room Air 04/14/23 07:48 Room Air 04/14/23 07:00 04/14/23 03:30 04/14/23 02:50 Room Air 04/14/23 02:01 04/14/23 02:01 04/14/23 02:00 04/14/23 01:31 04/14/23 01:31 04/14/23 01:30 04/14/23 01:01 04/14/23 01:01 04/14/23 01:19 04/14/23 00:01 04/13/23 23:39 04/13/23 23:38 Laboratory Results Laboratory Results - last 24 hr 04/13/23 04/13/23 04/13/23 21:00 21:14 21:39 WBC 11.34 H RBC 4.50 Hgb 13.6 POC Hgb Hct 39.4 POC Hct MCV 87.6 MCH 30.2 MCHC 34.5 RDW Std Deviation 41.7 RDW Coeff of Diane 13.1 Plt Count 310 MPV 9.5 Immature Gran % (Auto) 0.4 Neut % (Auto) 68.0 Lymph % (Auto) 22.8 Nobles % (Auto) 7.3 Eos % (Auto) 1.1 Baso % (Auto) 0.4 Neut # (Auto) 7.71 H Lymph # (Auto) 2.59 Nobles # (Auto) 0.83 H Eos # (Auto) 0.12 Baso # (Auto) 0.05 Immature Gran # (Auto) 0.04 PT INR APTT PTT Ratio D-Dimer POC Sodium Sodium POC Potassium Potassium POC Chloride Chloride Carbon Dioxide POC Total CO2 Anion Gap POC Anion Gap POC BUN BUN Creatinine POC Creatinine Est Cr Clr Drug Dosing Est GFR ( Amer) Est GFR (Non-Af Amer) BUN/Creatinine Ratio Glucose POC Glucose POC Glucose (other) Estimat Average Glucose Hemoglobin A1c Lactate Calcium POC Ioniz Calcium Ambar Magnesium Total Bilirubin Direct Bilirubin AST ALT Alkaline Phosphatase Troponin I High Sens Total Protein Albumin Procalcitonin TSH Free T4 Urine Color Yellow Urine Appearance Clear Urine pH 8.0 H Ur Specific Linn 1.006 Urine Protein Negative Urine Glucose (UA) Negative Urine Ketones Negative Urine Blood Negative Urine Nitrite Negative Urine Bilirubin Negative Urine Urobilinogen Negative Ur Leukocyte Esterase Negative Anaplasma Smear Babesia Smear Babesia microti DNA PCR Lyme Disease IgG Ab Lyme Disease IgM Ab SARS-CoV-2 (PCR) NEGATIVE Influenza Type A (PCR) Negative Influenza Type B (PCR) Negative RSV (RT-PCR) Negative 04/13/23 04/13/23 04/13/23 21:39 21:39 21:39 WBC RBC Hgb POC Hgb Hct POC Hct MCV MCH MCHC RDW Std Deviation RDW Coeff of Diane Plt Count MPV Immature Gran % (Auto) Neut % (Auto) Lymph % (Auto) Nobles % (Auto) Eos % (Auto) Baso % (Auto) Neut # (Auto) Lymph # (Auto) Nobles # (Auto) Eos # (Auto) Baso # (Auto) Immature Gran # (Auto) PT 11.0 INR 1.0 APTT 25.7 PTT Ratio 0.9 D-Dimer POC Sodium Sodium 139 POC Potassium Potassium 3.6 POC Chloride Chloride 107 Carbon Dioxide 23 POC Total CO2 Anion Gap 9 POC Anion Gap POC BUN BUN 9 Creatinine 0.68 POC Creatinine Est Cr Clr Drug Dosing 61.8 Est GFR ( Amer) 96.4 Est GFR (Non-Af Amer) 83.2 BUN/Creatinine Ratio 13.2 Glucose 98 POC Glucose POC Glucose (other) Estimat Average Glucose Hemoglobin A1c Lactate 1.8 Calcium 8.9 POC Ioniz Calcium Ambar Magnesium 1.9 Total Bilirubin 0.5 Direct Bilirubin 0.1 AST 16 ALT 11 Alkaline Phosphatase 88 Troponin I High Sens 7.2 Total Protein 7.5 Albumin 4.0 Procalcitonin TSH 7.028 H Free T4 1.02 Urine Color Urine Appearance Urine pH Ur Specific Linn Urine Protein Urine Glucose (UA) Urine Ketones Urine Blood Urine Nitrite Urine Bilirubin Urine Urobilinogen Ur Leukocyte Esterase Anaplasma Smear Babesia Smear Babesia microti DNA PCR Lyme Disease IgG Ab Lyme Disease IgM Ab SARS-CoV-2 (PCR) Influenza Type A (PCR) Influenza Type B (PCR) RSV (RT-PCR) 04/13/23 04/13/23 04/13/23 21:39 21:39 21:39 WBC RBC Hgb POC Hgb Hct POC Hct MCV MCH MCHC RDW Std Deviation RDW Coeff of Diane Plt Count MPV Immature Gran % (Auto) Neut % (Auto) Lymph % (Auto) Nobles % (Auto) Eos % (Auto) Baso % (Auto) Neut # (Auto) Lymph # (Auto) Nobles # (Auto) Eos # (Auto) Baso # (Auto) Immature Gran # (Auto) PT INR APTT PTT Ratio D-Dimer POC Sodium Sodium POC Potassium Potassium POC Chloride Chloride Carbon Dioxide POC Total CO2 Anion Gap POC Anion Gap POC BUN BUN Creatinine POC Creatinine Est Cr Clr Drug Dosing Est GFR ( Amer) Est GFR (Non-Af Amer) BUN/Creatinine Ratio Glucose POC Glucose POC Glucose (other) Estimat Average Glucose Hemoglobin A1c Lactate Calcium POC Ioniz Calcium Ambar Magnesium Total Bilirubin Direct Bilirubin AST ALT Alkaline Phosphatase Troponin I High Sens Total Protein Albumin Procalcitonin < 0.05 TSH Free T4 Urine Color Urine Appearance Urine pH Ur Specific Linn Urine Protein Urine Glucose (UA) Urine Ketones Urine Blood Urine Nitrite Urine Bilirubin Urine Urobilinogen Ur Leukocyte Esterase Anaplasma Smear See Comment Babesia Smear See Comment Babesia microti DNA PCR Pending Lyme Disease IgG Ab Negative Lyme Disease IgM Ab Negative SARS-CoV-2 (PCR) Influenza Type A (PCR) Influenza Type B (PCR) RSV (RT-PCR) 04/13/23 04/13/23 04/13/23 21:39 21:39 22:20 WBC RBC Hgb POC Hgb Hct POC Hct MCV MCH MCHC RDW Std Deviation RDW Coeff of Diane Plt Count MPV Immature Gran % (Auto) Neut % (Auto) Lymph % (Auto) Nobles % (Auto) Eos % (Auto) Baso % (Auto) Neut # (Auto) Lymph # (Auto) Nobles # (Auto) Eos # (Auto) Baso # (Auto) Immature Gran # (Auto) PT INR APTT PTT Ratio D-Dimer 690 H* POC Sodium Sodium POC Potassium Potassium POC Chloride Chloride Carbon Dioxide POC Total CO2 Anion Gap POC Anion Gap POC BUN BUN Creatinine POC Creatinine Est Cr Clr Drug Dosing Est GFR ( Amer) Est GFR (Non-Af Amer) BUN/Creatinine Ratio Glucose POC Glucose Cancelled POC Glucose (other) Estimat Average Glucose 120 Hemoglobin A1c 5.8 H Lactate Calcium POC Ioniz Calcium Ambar Magnesium Total Bilirubin Direct Bilirubin AST ALT Alkaline Phosphatase Troponin I High Sens Total Protein Albumin Procalcitonin TSH Free T4 Urine Color Urine Appearance Urine pH Ur Specific Linn Urine Protein Urine Glucose (UA) Urine Ketones Urine Blood Urine Nitrite Urine Bilirubin Urine Urobilinogen Ur Leukocyte Esterase Anaplasma Smear Babesia Smear Babesia microti DNA PCR Lyme Disease IgG Ab Lyme Disease IgM Ab SARS-CoV-2 (PCR) Influenza Type A (PCR) Influenza Type B (PCR) RSV (RT-PCR) 04/13/23 04/14/23 04/14/23 22:23 09:38 09:38 WBC 7.82 RBC 4.10 L Hgb 12.3 POC Hgb Cancelled Hct 35.5 L POC Hct Cancelled MCV 86.6 MCH 30.0 MCHC 34.6 RDW Std Deviation 41.6 RDW Coeff of Diane 13.2 Plt Count 284 MPV 9.5 Immature Gran % (Auto) 0.1 Neut % (Auto) 61.3 Lymph % (Auto) 30.9 Nobles % (Auto) 6.3 Eos % (Auto) 1.0 Baso % (Auto) 0.4 Neut # (Auto) 4.79 Lymph # (Auto) 2.42 Nobles # (Auto) 0.49 Eos # (Auto) 0.08 Baso # (Auto) 0.03 Immature Gran # (Auto) 0.01 PT INR APTT PTT Ratio D-Dimer POC Sodium Cancelled Sodium 139 POC Potassium Cancelled Potassium 4.5 D POC Chloride Cancelled Chloride 110 H Carbon Dioxide 24 POC Total CO2 Cancelled Anion Gap 5 POC Anion Gap Cancelled POC BUN Cancelled BUN 10 Creatinine 0.63 POC Creatinine Cancelled Est Cr Clr Drug Dosing 66.1 Est GFR ( Amer) 98.9 Est GFR (Non-Af Amer) 85.3 BUN/Creatinine Ratio 15.9 Glucose 99 POC Glucose POC Glucose (other) Cancelled Estimat Average Glucose Hemoglobin A1c Lactate Calcium 8.5 L POC Ioniz Calcium Ambar Cancelled Magnesium Total Bilirubin Direct Bilirubin AST ALT Alkaline Phosphatase Troponin I High Sens Total Protein Albumin Procalcitonin TSH Free T4 Urine Color Urine Appearance Urine pH Ur Specific Linn Urine Protein Urine Glucose (UA) Urine Ketones Urine Blood Urine Nitrite Urine Bilirubin Urine Urobilinogen Ur Leukocyte Esterase Anaplasma Smear Babesia Smear Babesia microti DNA PCR Lyme Disease IgG Ab Lyme Disease IgM Ab SARS-CoV-2 (PCR) Influenza Type A (PCR) Influenza Type B (PCR) RSV (RT-PCR) 04/14/23 09:38 WBC RBC Hgb POC Hgb Hct POC Hct MCV MCH MCHC RDW Std Deviation RDW Coeff of Diane Plt Count MPV Immature Gran % (Auto) Neut % (Auto) Lymph % (Auto) Nobles % (Auto) Eos % (Auto) Baso % (Auto) Neut # (Auto) Lymph # (Auto) Nobles # (Auto) Eos # (Auto) Baso # (Auto) Immature Gran # (Auto) PT INR APTT 34.5 H PTT Ratio 1.2 D-Dimer POC Sodium Sodium POC Potassium Potassium POC Chloride Chloride Carbon Dioxide POC Total CO2 Anion Gap POC Anion Gap POC BUN BUN Creatinine POC Creatinine Est Cr Clr Drug Dosing Est GFR ( Amer) Est GFR (Non-Af Amer) BUN/Creatinine Ratio Glucose POC Glucose POC Glucose (other) Estimat Average Glucose Hemoglobin A1c Lactate Calcium POC Ioniz Calcium Ambar Magnesium Total Bilirubin Direct Bilirubin AST ALT Alkaline Phosphatase Troponin I High Sens Total Protein Albumin Procalcitonin TSH Free T4 Urine Color Urine Appearance Urine pH Ur Specific Linn Urine Protein Urine Glucose (UA) Urine Ketones Urine Blood Urine Nitrite Urine Bilirubin Urine Urobilinogen Ur Leukocyte Esterase Anaplasma Smear Babesia Smear Babesia microti DNA PCR Lyme Disease IgG Ab Lyme Disease IgM Ab SARS-CoV-2 (PCR) Influenza Type A (PCR) Influenza Type B (PCR) RSV (RT-PCR)
--- NOTE | 2023-04-14 15:37 | Nuclear Medicine Report ---
NM pul perfusion CLINICAL HISTORY: Shortness of breath, pls notify md once results out. COMPARISON STUDY: Chest x-ray 04/13/2023. TECHNIQUE: Immediately following the intravenous administration of 5.2 mCi of technetium 99 M MAA for the perfusion scan, anterior, oblique, lateral, and posterior views of the chest were obtained. A ve ntilation scan was not performed due to coronavirus precautions. FINDINGS: There is prominence of the cardiac silhouette. Otherwise, no perfusion defects identified w ithin the right or left lung. IMPRESSION: Above findings suggest a very low probability scan. ACT 112: Negative or not required by law. Electronically signed by: Fortino Haines M.D. 04/14/2023 3:35 PM
--- NOTE | 2023-04-14 16:49 | Electrocardiogram Report ---
Test Reason : Blood Pressure : / mmHG Vent. Rate : 073 BPM Atrial Rate : 051 BPM P-R Int : 154 ms QRS Dur : 074 ms QT Int : 428 ms P-R-T Axes : 075 -09 013 degrees QTc Int : 471 ms Sinus rhythm with frequent Premature atrial complexes Intermittent Left bundle branch block Abnormal ECG When compared with ECG of 04-JUL-2022 22:16, Left bundle branch block is no longer Present continuously (now intermittent) Confirmed by Austin Mark ([id number]) on 04/14/2023 4:49:14 PM Referred By: REFERRED SELF Confirmed By:Austin Mark
--- NOTE | 2023-04-14 16:51 | Electrocardiogram Report ---
Test Reason : Blood Pressure : / mmHG Vent. Rate : 086 BPM Atrial Rate : 072 BPM P-R Int : 148 ms QRS Dur : 082 ms QT Int : 446 ms P-R-T Axes : 065 -04 042 degrees QTc Int : 533 ms Sinus rhythm with frequent Premature atrial complexes Intermittent Left bundle branch block Possible Acute Inferior infarct Abnormal ECG When compared with ECG of 13-APR-2023 21:07, ST elevation in Inferior leads now present Confirmed by Austin Mark ([id number]) on 04/14/2023 4:50:55 PM Referred By: REFERRED SELF Confirmed By:Austin Mark
--- NOTE | 2023-04-14 16:51 | Electrocardiogram Report ---
Test Reason : Blood Pressure : / mmHG Vent. Rate : 084 BPM Atrial Rate : 084 BPM P-R Int : 160 ms QRS Dur : 130 ms QT Int : 446 ms P-R-T Axes : 068 -39 079 degrees QTc Int : 527 ms Sinus rhythm Left axis deviation Left bundle branch block Abnormal ECG When compared with ECG of 13-APR-2023 21:10, Left bundle branch block is now Present continuously Confirmed by Austin Mark ([id number]) on 04/14/2023 4:51:32 PM Referred By: REFERRED SELF Confirmed By:Austin Mark
[2023-04-14 18:54] LABS: Partial Thromboplastin Time 49.5 Seconds (21.0-31.0)
[2023-04-14 19:01] LABS: Partial Thromboplastin Ratio 1.8
[2023-04-14] MEDS: METOPROLOL TARTRATE 25 MG TAB PO SCH (19:35)
[2023-04-14] MEDS ORDERED: lisinopril 2.5 MG TAB PO STA (19:45)
[2023-04-14] MEDS ORDERED: SODIUM CHLORIDE 0.9% 1,000 ML IV ONE (19:46)
[2023-04-14] MEDS ORDERED: NICOTINE POLACRILEX 2 MG GUM MT PRN (20:03)
[2023-04-14] MEDS ORDERED: hydrOXYzine HCl 25 MG TAB PO STA (20:04)
[2023-04-14] MEDS ORDERED: NICOTINE 7 MG/24 HR TDSY TD SCH (20:05)
[2023-04-14 21:55] LABS: Magnesium 2.2 mg/dl (1.7-2.4)
[2023-04-15 07:32] LABS: Partial Thromboplastin Ratio 0.9; Partial Thromboplastin Time 24.9 Seconds (21.0-31.0)
[2023-04-15] MEDS: FLUoxetine HCL 10 MG CAP PO SCH (08:26)
[2023-04-15] MEDS: METOPROLOL TARTRATE 25 MG TAB PO SCH (08:27)
[2023-04-15] MEDS: lisinopril 5 MG TAB PO SCH (08:27)
[2023-04-15] MEDS: METOPROLOL SUCC 25MG EXT REL TAB PO SCH (10:15)
--- NOTE | 2023-04-15 11:22 | Cardiology Progress Note ---
Date of Service April 15, 2023 Assessment & Plan (1) Hypertensive crisis: (2) Left bundle branch block: (3) Premature ventricular contractions (PVCs) (VPCs): (4) Tremor: Plan Patient is a 77-year-old female with limited records available who presents with symptoms of malaise and fatigue and palpitations over the past several weeks. Records review reveals evidence of hypertension, intermittent left bundle branch block and past hypokalemia. Patient underlying issues include essential tremor Recent [facility] visit for similar complaints and treated for hypokalemia and anxiety Patient does admit to some stress contributing to complaints "Does not like to take medications" Recommendations 1. Hypertensive crisis: continue metoprolol and lisinopril. 2. Bradycardia: Profound bradycardia not present reported bradycardia artif actual secondary to ventricular ectopy 3. Frequent ventricular ectopy: Would continue low-dose beta-preston with metoprolol succinate 12.5 mg daily. 4. Intermittent left bundle branch block possibly rate related: Left bundle branch block present on EKG in June 2022. Given current presentation would recommend Lexiscan stress nuclear imaging post discharge as part of assessment. 5. Essential tremor progressively worsening per patient. Noted beta-preston would be of assistance of this as well. Would proceed as listed above 6. Elevated D-dimer: LE venous duplex and pulmonary perfusion defect improved. -heparin infusion discontinued. Consider DVT propylaxis dose. 7. Preoperative evaluation: pt report she is scheduled to have an elective left humerus surgery with Dr Norman Schroeder of [facility] on Monday. Recommend this is delayed pending outpatient nuclear stress and follow up. Pt aware, agreeable. Admission and Anticipated Discharge Date Admission Date: April 14, 2023 Bhupinder Choudhary is seen in cardiology follow up. Overall feeling well with exception of chronic tremor. Telemetry reveals SR and SB in the 40s to 50s. The frequency of the PVCs seems improved. Physical Exam Constitutional: WD/WN, vitals as above no acute distress Eyes: PERRL, conjunctivae normal, anicteric sclerae ENMT: external ear and nose normal, oropharynx normal Neck: trachea midline, no thyromegaly Respiratory: normal respiratory effort, lungs clear to auscultation Cardiovascular: Rate/Rhythm: regular rate and regular rhythm Heart Sounds: normal S1 and normal S2; no murmur Vessels: normal carotid upstroke, femoral pulses present and radial pulses present; no JVD Extremities: no edema Gastrointestinal (Abdomen): normal bowel sounds, soft, nontender, no hepatosplenomegaly Musculoskeletal: no cyanosis or clubbing, extremities motor strength 5/5 Neurologic: Motor/Sensory: + tremor Results & Data Vital Signs (Past 12 Hours) Vital Signs Temp Pulse Pulse Resp BP Pulse Ox O2 Del Method 04/15/23 07:04 36.7 C 63 21 162/80 H 97 Room Air 04/15/23 07:36 47 L 04/15/23 02:52 36.7 C 73 18 149/71 H 98 Room Air 04/14/23 23:23 59 L 04/14/23 23:20 36.6 C 65 18 144/64 H 98 Room Air
--- NOTE | 2023-04-15 14:34 | Hospitalist Progress Note ---
Date of Service April 15, 2023 Assessment & Plan (1) Hypertensive crisis: Plan: UNCONTROLLED HYPERTENSION Not on antihypertensives at home Echocardiogram: Moderate concentric LVH EF 55 to 60% Grade 1 diastolic dysfunction No significant valvular stenosis Lisinopril 2.5 mg p.o. daily started--> increased to 5mg continue to monitor BP Cardiology service consulted SYMPTOMATIC PVCS HISTORY LBBB Cardiology service consulted continue Metoprolol XL 12.5 mg po daily SHORTNESS OF BREATH POSSIBLY FROM ANXIETY D dimer 600s VQ scan: negative Doppler ultrasound: Negative heparin discontinued ANXIETY Psych consulted patient declined further medication changes, or other intervention denies feeling depressed hyperlipidemia, not on statin Rx hx RLS/essential tremors as per records, worsening as per patient daughter the last week chronic left humeral fracture, surgery contemplated next week at [facility] past tobacco abuse DVT prophylaxis. Heparin SC TID Full code Disposition Anticipate discharge to home when medically stable Admission and Anticipated Discharge Date Admission Date: April 14, 2023 Subjective ff up for HTN,e tc seen resting in bed, comfortable states she feels ok overall no chest pain, dyspnea, palpitations, dizziness ambulating to the bathroom with no problems mood is ok, has some anxiety no other new symptoms Review of Systems Review of Systems: all noted and negative except for above Physical Exam Physical Exam: General- oriented x 3, not in distress, speaks in sentences with no effort or accessory muscle use Eyes- anicteric Neck- no JVD Lungs- clear BS BL no rales/wheezing Heart- normal rate, regular rhythm; no murmurs Abdomen- normal bowel sounds, nondistended, soft, nontender Extremities- no pretibial edema, no calf tenderness Neuro- alert, oriented x 3; no gross focal neurologic deficits Skin- warm & dry Results & Data Results & Data Vital Signs (Past 12 Hours) Vital Signs Temp Pulse Pulse Resp BP Pulse Ox O2 Del Method 04/15/23 11:33 36.9 C 58 L 16 135/82 97 Room Air 04/15/23 07:04 36.7 C 63 21 162/80 H 97 Room Air 04/15/23 07:36 47 L 04/15/23 02:52 36.7 C 73 18 149/71 H 98 Room Air all noted and reviewed including below
[2023-04-15] MEDS: HEPARIN SOD 5,000 UNIT/0.5 ML VIAL SQ SCH (22:21)
[2023-04-16] MEDS: HEPARIN SOD 5,000 UNIT/0.5 ML VIAL SQ SCH (06:00)
[2023-04-16] MEDS: METOPROLOL SUCC 25MG EXT REL TAB PO SCH (08:28)
[2023-04-16] MEDS: lisinopril 5 MG TAB PO SCH (08:29)
[2023-04-16] MEDS: FLUoxetine HCL 10 MG CAP PO SCH (08:29)
--- NOTE | 2023-04-16 12:12 | Cardiology Progress Note ---
Date of Service April 16, 2023 Assessment & Plan (1) Hypertensive crisis: (2) Left bundle branch block: (3) Premature ventricular contractions (PVCs) (VPCs): (4) Tremor: Plan Patient is a 77-year-old female with limited records available who presents with symptoms of malaise and fatigue and palpitations over the past several weeks. Records review reveals evidence of hypertension, intermittent left bundle branch block and past hypokalemia. Patient underlying issues include essential tremor Recent [facility] visit for similar complaints and treated for hypokalemia and anxiety Patient does admit to some stress contributing to complaints "Does not like to take medications" Blood pressure has been under well control, with noted measurement of 189/62 at 739 this morning. She has since received her metoprolol and her lisinopril 5 mg. Will need to repeat her blood pressure for reassessment. Recommendations 1. Hypertensive crisis: Continue metoprolol succinate 12.5 mg daily. Increase lisinopril to 5 mg twice daily. 2. Bradycardia: Profound bradycardia not present reported bradycardia artifactual secondary to ventricular ectopy 3. Frequent ventricular ectopy: Would continue low-dose beta-preston with metoprolol succinate 12.5 mg daily. Plan for titration as an outpatient as tolerated. 4. Intermittent left bundle branch block possibly rate related: Left bundle branch block present on EKG in June 2022. Given current presentation would recommend Lexiscan stress nuclear imaging post discharge as part of assessment. 5. Essential tremor progressively worsening per patient. Noted beta-preston would be of assistance of this as well. Would proceed as listed above 6. Elevated D-dimer: LE venous duplex and pulmonary perfusion defect improved. -heparin infusion discontinued. Patient declined subcu heparin injection this morning. 7. Preoperative evaluation: pt report she is scheduled to have an elective left humerus surgery with Dr Norman Schroeder [place] [facility] [place]. Recommend this is delayed pending outpatient nuclear stress and follow up. Pt aware, agreeable. If patient's blood pressure is stable/improved on follow-up reading this morning, anticipate discharge with plans for outpatient nuclear stress test at [facility]. - I placed the order for the stress test in her [facility] chart and placed request for cardiology follow up visit after the test. Admission and Anticipated Discharge Date Admission Date: April 14, 2023 Subjective Patient seen in cardiology follow-up. Her daughter was at the bedside at the time my assessment. Patient eating noontime meal and overall feels improved. Denies chest discomfort or shortness of breath. Telemetry reveals ongoing sinus rhythm with premature ventricular contractions. The review short salvos of wide-complex tachycardia that appeared to be supraventricular tachycardia with rate related left bundle branch block. Physical Exam Constitutional: WD/WN, vitals as above no acute distress Eyes: PERRL, conjunctivae normal, anicteric sclerae ENMT: external ear and nose normal, oropharynx normal Neck: trachea midline, no thyromegaly Respiratory: normal respiratory effort, lungs clear to auscultation Cardiovascular: Rate/Rhythm: regular rate and regular rhythm Heart Sounds: normal S1 and normal S2; no murmur Vessels: normal carotid upstroke, femoral pulses present and radial pulses present; no JVD Extremities: no edema Gastrointestinal (Abdomen): normal bowel sounds, soft, nontender, no hepatosplenomegaly Musculoskeletal: no cyanosis or clubbing, extremities motor strength 5/5 Neurologic: Motor/Sensory: + tremor Results & Data Vital Signs (Past 12 Hours) Vital Signs Temp Pulse Pulse Resp BP Pulse Ox O2 Del Method 04/16/23 07:00 56 L 04/16/23 07:39 36.3 C L 55 L 18 189/62 H 96 Room Air 04/16/23 02:49 36.6 C 69 16 136/57 L 96 Room Air
--- NOTE | 2023-04-16 16:21 | Hospitalist Progress Note ---
Date of Service April 16, 2023 Assessment & Plan (1) Hypertensive crisis: Plan: UNCONTROLLED HYPERTENSION Not on antihypertensives at home Echocardiogram: Moderate concentric LVH EF 55 to 60% Grade 1 diastolic dysfunction No significant valvular stenosis Lisinopril 2.5 mg p.o. daily started--> increased to 5mg Cardiology service consulted discharge: Lisinopril 5mg BID ff up with PCP SYMPTOMATIC PVCS HISTORY LBBB Cardiology service consulted started Metoprolol XL 12.5 mg po daily less PVCs noted Nuclear stress test recommended prior to left shoulder surgery [facility] cardiology clinic will be calling the patient soon for the appointment Follow-up with fire hydrant mechanic Dr. Maurer SHORTNESS OF BREATH POSSIBLY FROM ANXIETY D dimer 600s VQ scan: negative Doppler ultrasound: Negative heparin discontinued ANXIETY Psych consulted patient declined further medication changes, or other intervention denies feeling depressed hyperlipidemia, not on statin Rx hx RLS/essential tremors as per records, worsening as per patient daughter the last week chronic left humeral fracture, surgery contemplated next week at [facility] past tobacco abuse DVT prophylaxis. Heparin SC TID Full code Disposition Discharge to home PCP follow-up 1 week Cardiology follow-up 2 weeks plan of care discussed with patient and her daughter at the bedside in detail and at length all questions answered They are understanding, agreeable, comfortable with the plan of care Admission and Anticipated Discharge Date Admission Date: April 14, 2023 Subjective Follow-up for hypertension, etc. Seen resting in bed, comfortable, not in distress States she feels much better overall no chest pain, dyspnea, palpitations, dizziness Ambulating with no problems Ready for discharge today Review of Systems Review of Systems: all noted and negative except for above Physical Exam Physical Exam: General- oriented x 3, not in distress, speaks in sentences with no effort or accessory muscle use Eyes- anicteric Neck- no JVD Lungs- clear breath sounds bilaterally, no rales/wheezes Heart- normal rate, regular rhythm; no murmurs Abdomen- normal bowel sounds, nondistended, soft, nontender Extremities- no pretibial edema, no calf tenderness Neuro- alert, oriented x 3; no gross focal neurologic deficits Skin- warm & dry Results & Data Results & Data Vital Signs (Past 12 Hours) Vital Signs Temp Pulse Pulse Pulse Resp BP Pulse Ox 04/16/23 13:25 36.7 C 56 L 59 L 18 142/90 H 97 04/16/23 12:11 36.7 C 59 L 18 142/90 H 97 04/16/23 07:00 56 L 04/16/23 07:39 36.3 C L 55 L 18 189/62 H 96 O2 Del Method 04/16/23 13:25 04/16/23 12:11 Room Air 04/16/23 07:00 04/16/23 07:39 Room Air all noted and reviewed including below
--- NOTE | 2023-04-16 16:22 | Discharge Summary ---
Discharge Summary Date of Service April 16, 2023 Notes For Next Care Provider Medication Changes From Visit Lisinopril 5 mg twice daily Metoprolol XL 12.5 mg daily Admission HPI Per Admitting Provider History obtained from patient, family, and records. Medical history significant for LBBB, hyperlipidemia, RLS/essential tremors as per records, anxiety/mood disorder, chronic left humeral fracture, past tobacco abuse. One month history of intermittent posterior headache symptoms, shortness of breath, shakiness, fatigue, nausea symptoms. No chest pain, no cough symptoms. Possible spider bite right upper extremity last month. Admits to increased anxiety/stress over upcoming left humerus surgery at [facility] next week, grandson leaving for service, etc. Admits to depression without suicidality. Patient started by PCP on Vistaril as needed for anxiety. Not sure if working. Overnight confinement at [facility] last month. Symptoms attributed to anxiety and hypokalemia. PVCs noted on the monitor as per daughter who is also an RN. Patient discharged on buspirone which patient stopped after a few doses because it made her sicker. Patient brought to ER by family for worsening symptoms. Initial SBP 200s. NSVT and multiple PVCs noted on ER telemetry. Medical History as above Surgical History : Laser trabeculoplasty, CASSIE, RSO, cataract surgery Family History : Brain cancer, colon cancer Personal/Social history : Past tobacco abuse, no EtOH intake, retired adjunct nursing faculty Admission Exam Per Admitting Provider GENERAL: Slightly uncomfortable, markedly anxious, tremulous, no respiratory distress SKIN: Normal color, warm HEENT: [place] palpebral conjunctivae, no ptosis, dry buccal mucosa NECK : Supple, no tenderness CHEST : CTA, no tenderness HEART : RRR, no obvious murmurs ABDOMEN: Some distention, nontender EXTREMITIES : No LE swelling/tenderness, minimal left upper extremity tenderness, no other conspicuous deformities noted NEUROLOGIC : Coherent, no facial asymmetry, rest tremors, gait and stance not assessed Principal Dx & Hospital Course #1 = Principal Diagnosis (1) Hypertensive crisis: UNCONTROLLED HYPERTENSION Not on antihypertensives at home Echocardiogram: Moderate concentric LVH EF 55 to 60% Grade 1 diastolic dysfunction No significant valvular stenosis Lisinopril 2.5 mg p.o. daily started--> increased to 5mg Cardiology service consulted discharge: Lisinopril 5mg BID ff up with PCP SYMPTOMATIC PVCS HISTORY LBBB Cardiology service consulted started Metoprolol XL 12.5 mg po daily less PVCs noted Nuclear stress test recommended prior to left shoulder surgery [facility] cardiology clinic will be calling the patient soon for the appointment Follow-up with film waxer Dr. Maurer SHORTNESS OF BREATH POSSIBLY FROM ANXIETY D dimer 600s VQ scan: negative Doppler ultrasound: Negative heparin discontinued ANXIETY Psych consulted patient declined further medication changes, or other intervention denies feeling depressed hyperlipidemia, not on statin Rx hx RLS/essential tremors as per records, worsening as per patient daughter the last week chronic left humeral fracture, surgery contemplated next week at [facility] past tobacco abuse DVT prophylaxis. Heparin SC TID Full code Disposition Discharge to home PCP follow-up 1 week Cardiology follow-up 2 weeks plan of care discussed with patient and her daughter at the bedside in detail and at length all questions answered They are understanding, agreeable, comfortable with the plan of care Discharge Exam General- oriented x 3, not in distress, speaks in sentences with no effort or accessory muscle use Eyes- anicteric Neck- no JVD Lungs- clear breath sounds bilaterally, no rales/wheezes Heart- normal rate, regular rhythm; no murmurs Abdomen- normal bowel sounds, nondistended, soft, nontender Extremities- no pretibial edema, no calf tenderness Neuro- alert, oriented x 3; no gross focal neurologic deficits Skin- warm & dry Updated Medication List Medication Instructions Recorded Confirmed Type epinephrine 0.3 mg/0.3 mL 0.3 mg IM Q4H PRN Allergic Reaction 07/04/22 04/13/23 History injection, auto-injector (EpiPen) fluoxetine 10 mg capsule 10 mg PO DAILY 07/04/22 04/13/23 History hydroxyzine HCl 10 mg tablet 5 - 10 mg PO TID PRN anxiety or 04/13/23 04/13/23 History insomnia lisinopril 5 mg tablet (Zestril) 5 mg PO BID 30 days #60 tabs 04/16/23 Rx metoprolol succinate 25 mg 12.5 mg PO QAM 30 days #15 tabs 04/16/23 Rx tablet,extended release 24 hr Hospital Stay Data Consultations 04/14/23 00:37 ED Decision to Admit Stat 04/14/23 04:39 Consult Cardiology Routine 04/15/23 11:20 Consult Behavioral Health Liaison Routine Diagnostic Imagining Performed Laboratory Results WBC 7.82 K/ul (4.8-10.8) 04/14/23 09:38 RBC 4.10 M/uL (4.20-5.40) L 04/14/23 09:38 Hgb 12.3 g/dl (12.0-16.0) 04/14/23 09:38 POC Hgb Cancelled 04/13/23 22: Hct 35.5 % (37.0-47.0) L 04/14/23 09:38 POC Hct Cancelled 04/13/23 22: MCV 86.6 fL (80.0-100.0) 04/14/23 09:38 MCH 30.0 pg (25.0-34.0) 04/14/23 09:38 MCHC 34.6 g/dL (32.0-36.0) 04/14/23 09:38 RDW Std Deviation 41.6 fL (36.4-46.3) 04/14/23 09:38 RDW Coeff of Diane 13.2 % (11.5-14.5) 04/14/23 09:38 Plt Count 284 K/uL (130-400) 04/14/23 09:38 MPV 9.5 fL (9.4-12.4) 04/14/23 09:38 Immature Gran % (Auto) 0.1 % 04/14/23 09:38 Neut % (Auto) 61.3 % 04/14/23 09:38 Lymph % (Auto) 30.9 % 04/14/23 09:38 [place] % (Auto) 6.3 % 04/14/23 09:38 Eos % (Auto) 1.0 % 04/14/23 09:38 Baso % (Auto) 0.4 % 04/14/23 09:38 Neut # (Auto) 4.79 K/uL (1.40-6.50) 04/14/23 09:38 Lymph # (Auto) 2.42 K/uL (1.20-3.40) 04/14/23 09:38 [place] # (Auto) 0.49 K/uL (0.11-0.59) 04/14/23 09:38 Eos # (Auto) 0.08 K/uL (0.00-0.50) 04/14/23 09:38 Baso # (Auto) 0.03 K/uL (0.00-0.20) 04/14/23 09:38 Immature Gran # (Auto) 0.01 K/uL (0.01-0.20) 04/14/23 09:38 PT 11.0 Seconds (9.0-12.0) 04/13/23 21:39 INR 1.0 (0.9-1.1) 04/13/23 21:39 APTT 24.9 Seconds (21.0-31.0) 04/15/23 06:31 PTT Ratio 0.9 04/15/23 06:31 D-Dimer 690 ug/L FEU (0-500) H* 04/13/23 21:39 POC Sodium Cancelled 04/13/23 22:23 Sodium 139 mmol/L (136-145) 04/14/23 09:38 POC Potassium Cancelled 04/13/23 22:23 Potassium 4.5 mmol/L (3.5-5.1) D 04/14/23 09:38 POC Chloride Cancelled 04/13/23 22:23 Chloride 110 mmol/L (98-107) H 04/14/23 09:38 Carbon Dioxide 24 mmol/L (21-32) 04/14/23 09:38 POC Total CO2 Cancelled 04/13/23 22:23 Anion Gap 5 (3-11) 04/14/23 09:38 POC Anion Gap Cancelled 04/13/23 22:23 POC BUN Cancelled 04/13/23 22:23 BUN 10 mg/dl (6-23) 04/14/23 09:38 Creatinine 0.63 mg/dl (0.6-1.2) 04/14/23 09:38 POC Creatinine Cancelled 04/13/23 22:23 Est Cr Clr Drug Dosing 66.1 ml/min 04/14/23 09:38 Est GFR ( Amer) 98.9 ml/min 04/14/23 09:38 Est GFR (Non-Af Amer) 85.3 ml/min 04/14/23 09:38 BUN/Creatinine Ratio 15.9 (10-20) 04/14/23 09:38 Glucose 99 mg/dl (70-99(Fasting)) 04/14/23 09:38 POC Glucose 93 mg/dl (70-99) 04/15/23 07:08 POC Glucose (other) Cancelled 04/13/23 22:23 Estimat Average Glucose 120 mg/dl 04/13/23 21:39 Hemoglobin A1c 5.8 % (4.5-5.6) H 04/13/23 21:39 Lactate 1.8 mmol/L (0.4-2.0) 04/13/23 21:39 Calcium 8.5 mg/dl (8.6-10.3) L 04/14/23 09:38 POC Ioniz Calcium Ambar Cancelled 04/13/23 22:23 Magnesium 2.2 mg/dl (1.7-2.4) 04/14/23 09:38 Total Bilirubin 0.5 mg/dl (0.2-1.0) 04/13/23 21:39 Direct Bilirubin 0.1 mg/dl (0-0.2) 04/13/23 21:39 AST 16 U/L (13-39) 04/13/23 21:39 ALT 11 U/L (7-52) 04/13/23 21:39 Alkaline Phosphatase 88 U/L (34-104) 04/13/23 21:39 Troponin I High Sens 7.2 pg/ml (0-14) 04/13/23 21:39 Total Protein 7.5 gm/dl (6.0-8.3) 04/13/23 21:39 Albumin 4.0 gm/dl (3.4-5.0) 04/13/23 21:39 Procalcitonin < 0.05 ng/ml (0-0.5) 04/13/23 21:39 TSH 7.028 uIu/ml (0.300-4.500) H 04/13/23 21:39 Free T4 1.02 ng/dl (0.61-1.60) 04/13/23 21:39 Urine Color Yellow 04/13/23 21:00 Urine Appearance Clear (Clear) 04/13/23 21:00 Urine pH 8.0 (4.5-7.5) H 04/13/23 21:00 Ur Specific [place] 1.006 (1.000-1.030) 04/13/23 21:00 Urine Protein Negative (Negative) 04/13/23 21:00 Urine Glucose (UA) Negative (Negative) 04/13/23 21:00 Urine Ketones Negative (Negative) 04/13/23 21:00 Urine Blood Negative (Negative) 04/13/23 21:00 Urine Nitrite Negative (Negative) 04/13/23 21:00 Urine Bilirubin Negative (Negative) 04/13/23 21:00 Urine Urobilinogen Negative (Negative) 04/13/23 21:00 Ur Leukocyte Esterase Negative (Negative) 04/13/23 21:00 Anaplasma Smear See Comment 04/13/23 21:39 Babesia Smear See Comment 04/13/23 21:39 Lyme Disease IgG Ab Negative (Negative) 04/13/23 21:39 Lyme Disease IgM Ab Negative (Negative) 04/13/23 21:39 SARS-CoV-2 (PCR) NEGATIVE (Negative) 04/13/23 21:14 Influenza Type A (PCR) Negative (Neg) 04/13/23 21:14 Influenza Type B (PCR) Negative (Neg) 04/13/23 21:14 RSV (RT-PCR) Negative (Neg) 04/13/23 21:14 Impressions Chest X-Ray 04/13/23 21:01 XR chest 1V portable CLINICAL HISTORY: Sepsis TECHNIQUE: Single frontal radiograph of the chest was obtained. Comparison: None available at the time of this dictation. FINDINGS: No lines and tubes are seen. Calcified aortic knob is seen. The lungs are clear. No evidence of pleural effusion or pneumothorax. IMPRESSION: No acute abnormalities and in particular no radiographic evidence of pneumonia. ACT 112: Negative or not required by law. Electronically signed by: Low Baez M.D. 04/14/2023 7:[address] 04/13/23 21:01 Exam(s): CT HEAD Without Contrast EXAM: CT Head Without Intravenous Contrast CLINICAL HISTORY: Reason for exam: weakness. TECHNIQUE: Axial computed tomography images of the head/brain without intravenous contrast. CTDI is 38.1 mGy and DLP is 546.36 mGy-cm. Automated exposure control was utilized for the study. A dose lowering technique was utilized adhering to the principles of ALARA. COMPARISON: No relevant prior studies available. FINDINGS: No acute intracranial hemorrhage. No midline shift or mass effect. The [place]-white matter differentiation is maintained throughout. Age-related cerebral volume loss. Periventricular and subcortical white matter hypoattenuation, consistent with chronic microangiopathy. The visualized orbits appear grossly unremarkable. The calvarium is intact. The visualized paranasal sinuses and mastoid air cells are grossly clear. IMPRESSION: No acute intracranial hemorrhage, midline shift, or mass effect. Electronically signed by: Yunior Hoskins MD 04/13/23 23:18 PM Venous Doppler Study 04/14/23 01:49 Exam(s): US VENOUS BILATERAL LOWER EXTREMITIES EXAM: US Duplex Bilateral Lower Extremities Veins CLINICAL HISTORY: Reason for exam: abn dimer. TECHNIQUE: Real-time duplex ultrasound scan of the bilateral lower extremity veins integrating B-mode two-dimensional vascular structure, Doppler spectral analysis, color flow Doppler imaging and compression. COMPARISON: No relevant prior studies available. FINDINGS: Right deep veins: Unremarkable. No DVT in the right common femoral, femoral, proximal deep femoral or popliteal veins. The veins demonstrate normal color flow, are normally compressible, with normal phasic flow and/or augmentation response. Right superficial veins: Unremarkable. No thrombus in the visualized right great saphenous vein. Left deep veins: Unremarkable. No DVT in the left common femoral, femoral, proximal deep femoral or popliteal veins. The veins demonstrate normal color flow, are normally compressible, with normal phasic flow and/or augmentation response. Left superficial veins: Unremarkable. No thrombus in the visualized left great saphenous vein. Soft tissues: No acute findings. No popliteal cyst. IMPRESSION: Normal bilateral lower extremity duplex venous ultrasound. Electronically signed by: Manuel Lucas MD 04/14/23 05:59 AM Pulmonary Perfusion Imaging 04/14/23 07:28 NM pul perfusion CLINICAL HISTORY: Shortness of breath, pls notify once results out. COMPARISON STUDY: Chest x-ray 04/13/2023. TECHNIQUE: Immediately following the intravenous administration of 5.2 mCi of technetium 99 M MAA for the perfusion scan, anterior, oblique, lateral, and posterior views of the chest were obtained. A ventilation scan was not performed due to coronavirus precautions. FINDINGS: There is prominence of the cardiac silhouette. Otherwise, no perfusion defects identified within the right or left lung. IMPRESSION: Above findings suggest a very low probability scan. ACT 112: Negative or not required by law. Electronically signed by: Fortino Haines M.D. 04/14/2023 3:35 PM 04/13/23 21:01 CT head/brain wo con Stat 04/14/23 01:49 US venous doppler LE BI Stat Pending Results Patient Have Any Pending Studies at Discharge: No Discharge Instructions Given to Patient (Per Discharging Provider) PLEASE REFER TO YOUR NEW MEDICATION LIST AND FOLLOW INSTRUCTIONS CAREFULLY. YOUR NEW MEDICATIONS INCLUDE: Lisinopril-for blood pressure control Metoprolol XL-for control of PVCs You will need a nuclear stress test at the [facility] cardiology clinic. The clinic will be calling you soon for the appointment schedule. PLEASE CALL YOUR PRIMARY CARE PHYSICIAN OR RETURN TO THE ER IF WITH WORSENING OF SYMPTOMS, INCLUDING Chest pain, shortness of breath, palpitations, dizziness, etc. FOLLOW UP WITH PRIMARY CARE PHYSICIAN in 1 week. FOLLOW-UP WITH [facility] DR. FINK IN 2 WEEKS. HIS CLINIC WILL BE CALLING YOU SOON FOR THE APPOINTMENT. Total Time Total Time Spent Total Time Spent (In Minutes): >30 minutes
[2023-04-18 03:17] LABS: Babesia microti DNA Not Detected (Not Detected)
--- NOTE | 2023-05-08 11:53 | Coding Query ---
A supporting diagnosis is required for the test/procedure performed on this patient in order for us to be reimbursed by the patient's insurance. Please provide a supporting diagnosis for the following test/procedure listed below next to the test name along with your signature. *If there is no additional diagnosis for this patient that would support the following test/procedure please document that below next to the test/procedure. Test(s)/Procedure(s) that require a supporting diagnosis: * US VENOUS DOPPLER LE BI DIAGNOSIS: Provider Signature: Date: Thank you Bridgette Roche AMEE Information Management Once completed, please kindly fax back to [phone] For questions please call [phone] [facility]
== END 2023-04-16 13:51 | disposition home or self-care (01) | DRG 305 ==
LOC: ED 20:35 → 2S 04-14 01:51 → INTOOBSV 04-14 01:51 → 2S 04-14 04:28